=== PATIENT | male | born 1945 | race Caucasian/White ===

== ENCOUNTER 2017-01-30 09:45 | Outpatient (CLI) | payer MEDICARE, OTHER ==
[~2017-01-30] VITALS: Ht 157.5 cm; Wt 74.1 kg
[~2017-01-30 09:45] MED LIST: LISI20TA11 PO
[2017-01-30] MEDS ORDERED: CAPE500T11 PO (10:02)
[2017-01-30 10:03] VITALS: BP 162/75; PULSE 70; RESP 16; Ht 157.5 cm; Wt 74.1 kg
--- NOTE | 2017-01-30 12:16 | CONS ---
[facility] INITIAL OUTPATIENT CONSULTATION NOTE DATE OF CONSULTATION: 01/30/2017 PLACE OF SERVICE: [facility] ASSESSMENT AND PLAN: A very pleasant 71-year-old gentleman with above- mentioned comorbidities, presenting with evidence for stage IV colon cancer. He is status post laparoscopic hand-assisted sigmoid colectomy with primary anastomosis and seems to be doing well from a cancer standpoint, status post adjuvant treatment with modified FOLFOX and currently on Xeloda. His tumor seems to have remained stable within his liver and we do not have any evidence of obvious other disease present according to the PET CT. If his colonoscopy and liver dedicated CT scan show these 2 areas of involvement in segment 4A and segment 8 of the liver to be the only areas of involvement then I would strongly recommend scheduling the patient for a partial hepatectomy of these 2 lesions. The rest of his liver should be adequate enough to allow him to survive with reasonable small chance of complications such as liver dysfunction or other major problems. This is obviously a complicated picture and I strongly recommended that the patient involve his family members with the decision making and to bring them to our next office visit after above studies have been completed. I also obtained the patient's permission to present his case in a multidisciplinary fashion as well. I answered all the patient's questions to the best of my ability and I believe that he understood and agreed with the plans. With above assessment I have recommended the followin. Colonoscopy. 2. Liver dedicated CT scan of abdomen and pelvis with and without IV contrast ( triple phase). 3. Multidisciplinary Tumor Board presentation. 4. Tentatively schedule the patient for a laparoscopic, possible open partial hepatectomy with intraoperative ultrasound. 5. Repeat visit with us in 2 to 3 weeks after above studies have been completed as the last preoperative consultation. Thank you again for allowing us to participate in the care of this very pleasant gentleman and I am certain his wonderful family. If there are any questions, please feel free to contact me at [phone]. TOTAL VISIT TIME: 60 minutes of which more than half was spent in [id number] discussion with the patient as well as coordination of care between multiple physicians and providers. UPDATE CLINICAL SUMMARY: A very pleasant 71-year-old gentleman with comorbidity of hypertension and previous cholecystectomy, status post laparoscopic hand-assisted sigmoid colectomy with primary anastomosis by Dr. Nestor Kasper at [facility] September 2015 for a stage III (PT3PN1) originally thought to be M0, 1 out of 14 lymph node positive with focally suspected lymphovascular invasion and no perineural invasion and 1 tumor deposit low grade (I to II) adenocarcinoma sized at 3 x 3 cm without any evidence of perforation and with negative margins. Patient then received modified FOLFOX 6 consisting of 5-FU, leucovorin and oxaliplatin for 12 cycles. He was noted to have increase in CEA from 3.5 to 11.7, 12/2016. Had CT done on 01/06/2017 showed at least 2 hypermetabolic hypoattenuating hepatic metastasis newly hypermetabolic from the prior PET CT measuring 1.9 cm with SUV of 6.7 and 1 cm lesion with SUV 4.3. The 1.9 cm mass measured 0.3 cm on the prior CT 12/19/2015 and the 1 cm mass was stable in size; however, again was thought to be newly hypermetabolic. There was also decreased metabolic uptake with previously seen mildly FDG avid periportal and left pelvic lymph nodes from prior which may be reactive inflammatory versus malignant process. There was increased ileocecal metabolic uptake and intraluminal narrowing similar to prior SUV maximum level of 5.4 previous CV maximum was 5.6 and this was thought to may be physiologic, but malignancy could not be entirely ruled out. COMORBIDITIES: 1. BMI 29.9. 2. Hypertension. 3. Dermatitis. 4. History of acute cholecystitis, status post laparoscopic cholecystectomy 10/2012. 5. Mother with stomach cancer. 6. Above-mentioned stage III adenocarcinoma of the sigmoid colon which in retrospect is likely stage IV. HISTORY OF PRESENT ILLNESS: The patient is a very pleasant 71-year-old gentleman with above-mentioned comorbidities whom we were kindly asked to consult regarding management of his liver lesions thought to be metastatic colon cancer. He reports no changes in his appetite and no difficulty with eating. He does not have any abdominal pain and no nausea or vomiting. He has not had any other surgical procedures in the past and no other complaints. ALLERGIES: NO KNOWN DRUG ALLERGIES. MEDICATIONS: Xeloda. SOCIAL HISTORY: The patient lives in [place]. He is currently working. He has three sons, two of whom live outside of [place] and 1 who lives here. He does not report any smoking, drinking, or intravenous drug use. FAMILY HISTORY: Mother with stomach cancer, otherwise, no other major medical, surgical or oncologic problems reported in the family. REVIEW OF SYSTEMS: Other than the above-mentioned, there are no other pertinent positives or pertinent negatives in a complete 14-point review of systems. PHYSICAL EXAMINATION: GENERAL: The patient appears to be a very pleasant gentleman of descent, appearing stated age, sitting in a chair comfortably and in no acute distress. BMI 29.9. VITAL SIGNS: Temperature 98.3. Blood pressure 162/75. Pulse 70. Respiratory rate 16. Pulse oximetry 95% on room air. HEENT: Normocephalic and atraumatic. Extraocular muscles and hearing are grossly intact bilaterally and symmetrically. Sclerae are nonicteric. Oral cavity is clear; oral mucosa appeared to be pink and moist. Dentition: fair. NECK: Supple. There is no lymphadenopathy or JVD. There is no submental, submandibular or supraclavicular lymphadenopathy. CHEST: Rises symmetrically with each breath; patient is breathing comfortably. There are no audible wheezes, rales or rhonchi on the gross exam. HEART: Pulse is regular and palpable on the right wrist. Capillary refill was normal. Carotid pulses are palpable bilaterally and symmetrically in the neck. EXTREMITIES: Lower extremities contain no pitting edema around the ankles bilaterally and symmetrically. ABDOMEN: Abdomen is soft, nontender and nondistended. There are no peritoneal signs or guarding. No evidence of ascites, organomegaly, caput medusae, engorged subcutaneous veins, or other abnormalities. SKIN: Appears to be pink and feels warm to touch. NEUROLOGIC: Awake, alert, and follows commands appropriately. LABORATORY: Laboratory values dated 12/2016 white blood cell count 7.1, platelets 156, creatinine 0.7, total bilirubin 1.0. Alkaline phosphatase 112, AST 40, ALT 28, albumin 3.8, CO2 of 25, CEA 11.7, up from 3.5 from 09/2016. IMAGING: Reviewed above. Note that I personally reviewed all the available and pertinent images and I agree in general with their overall reported findings. Note that review of CT scan of chest, abdomen and pelvis with and without contrast 12/19/2015 shows evidence for likely metastatic disease in the same location as seen on the PET CT images. These appear to be in segment 4A as well as segment 6 of the liver. Dictated By: SARITA MONTIEL/NTS Conf#: [id number] DID#: [id number] CC: GILBERTO FISHMAN MD; HECTOR CASSIDY MD;*EndCC* MTDD
== END 2017-01-30 17:08 | disposition home or self-care (01) ==
LOC: HPC 09:45
PROVIDERS: ATTEND Transplant Surgery
DX: C18.7 Malignant neoplasm of sigmoid colon (principal); I10 Essential (primary) hypertension
CPT/HCPCS: G0463

== ENCOUNTER 2017-03-15 13:15 | Outpatient (CLI) | payer OTHER ==
[~2017-03-15] VITALS: Ht 157.5 cm; Wt 72.3 kg
[2017-03-15 13:00] VITALS: BP 159/74; PULSE 79; RESP 18; Ht 157.5 cm; Wt 72.3 kg
[~2017-03-15 13:15] MED LIST changes: +CAPE500T11 PO; -LISI20TA11 PO
--- NOTE | 2017-03-15 13:35 | PN ---
Date/Time of Note Date/Time of Note DATE: 03/15/17 TIME: 13:30 Assessment/Plan Assessment/Plan Assessment/Plan [facility] Progress Note Date of Service: 03/15/17 Today's Impression & Plan: Overall stable with stage IV colon cancer with metastasis to liver (seg 4a/2 and segment 7). Colonoscopy 03/10/17 acceptable without concern for malignancy. Recommended and obtained patient's and [id number]'s consent for partial hepatectomy. With above assessment, I've recommended the following for today: 1. Pre-op H&P 2. Schedule for laparoscopic, possible open, partial hepatectomy (at least two areas) with intraoperative ultrasound, possible biopsy Thank you again for your great care of this very pleasant patient and wonderful family. If there are any questions, please feel free to call me at [phone]. TOTAL VISIT TIME: 20 minutes of which more than half was spent in [id number] discussion with the patient, possibly including family, as well as coordination of care between multiple physicians and providers. Disclaimer: Inadvertent spelling or grammatical errors are likely due to EHR/ dictation software use and do not reflect on the overall quality of patient care. Updated Clinical Summary: A very pleasant 71-year-old gentleman with comorbidity of hypertension and previous cholecystectomy, status post laparoscopic hand-assisted sigmoid colectomy with primary anastomosis by Dr. Nestor Kasper at [facility] September 2015 for a stage III (PT3PN1) originally thought to be M0, 1 out of 14 lymph node positive with focally suspected lymphovascular invasion and no perineural invasion and 1 tumor deposit low grade (I to II) adenocarcinoma sized at 3 x 3 cm without any evidence of perforation and with negative margins. Patient then received modified FOLFOX 6 consisting of 5-FU, leucovorin and oxaliplatin for 12 cycles. He was noted to have increase in CEA from 3.5 to 11.7, 12/2016. Had CT done on 01/06/2017 showed at least 2 hypermetabolic hypoattenuating hepatic metastasis newly hypermetabolic from the prior PET CT measuring 1.9 cm with SUV of 6.7 and 1 cm lesion with SUV 4.3. The 1.9 cm mass measured 0.3 cm on the prior CT 12/19/2015 and the 1 cm mass was stable in size; however, again was thought to be newly hypermetabolic. There was also decreased metabolic uptake with previously seen mildly FDG avid periportal and left pelvic lymph nodes from prior which may be reactive inflammatory versus malignant process. There was increased ileocecal metabolic uptake and intraluminal narrowing similar to prior SUV maximum level of 5.4 previous CV maximum was 5.6 and this was thought to may be physiologic, but malignancy could not be entirely ruled out. Colonoscopy 03/10/17 with removal of 7 small polyps and no evidence of malignancy done at [facility]. COMORBIDITIES: 1. BMI 29.9. 2. Hypertension. 3. Dermatitis. 4. History of acute cholecystitis, status post laparoscopic cholecystectomy 10/2012. 5. Mother with stomach cancer. 6. Above-mentioned stage III adenocarcinoma of the sigmoid colon which in retrospect is likely stage IV. 7. Colonoscopy 03/10/17 with removal of 7 small polyps and no evidence of malignancy done at [facility]. Subjective: No major events or complaints; no abd pain; no n/v/d; no sob or cp; + flatus; + BM and normal; + activity Objective: Vitals: See below Exam: GENERAL: On exam, the patient was sitting in a chair and appeared to be comfortable and in no acute distress. ABDOMEN: Soft, nontender and nondistended. There are no peritoneal signs or guarding. SKIN: Skin appears to be pink and feels warm to touch. NEUROLOGIC: Patient is awake, alert, and follows commands appropriately. Exam/Review of Systems Vital Signs Vitals Vital Signs Date Time Temp Pulse Resp B/P Pulse Ox O2 Delivery O2 Flow Rate FiO2 03/15/17 13:00 98.7 79 18 159/74 94 Room Air SARITA WHITAKER M.D. March 15, 2017 13:35
== END 2017-03-15 15:16 | disposition home or self-care (01) ==
LOC: HPC 13:15
PROVIDERS: ATTEND Transplant Surgery
DX: Z01.818 Encounter for other preprocedural examination (principal); C18.9 Malignant neoplasm of colon, unspecified; C78.7 Secondary malignant neoplasm of liver and intrahepatic bile duct
CPT/HCPCS: G0463

== ENCOUNTER 2017-03-28 05:21 | Inpatient (IN) | payer OTHER ==
[~2017-03-28] VITALS: Ht 157.5 cm; Wt 70.6 kg
[2017-03-28] VITALS (36 sets, daily range): BP systolic 72–150; BP diastolic 20–71; PULSE 77–92; RESP 10–21; Ht 157.5 cm; Wt 70.6 kg
[2017-03-28] MEDS ORDERED: PIPER-TAZO 3.375 GM IV (PMX) 100 ML IVPB SCH (06:00)
[2017-03-28] MEDS ORDERED: BUPIVACAINE 0.25%/EPI (SDV) 30 ML INJ ONE (06:46)
[2017-03-28] MEDS ORDERED: ACETAMINOPHEN 1000 MG/100 ML IVPB ONE (07:00)
[2017-03-28] MEDS ORDERED: LISI40TA9 PO (07:13)
[2017-03-28] MEDS ORDERED: THROMBIN 5000 UNIT VIAL ONE (07:21)
[2017-03-28] MEDS ORDERED: ROCURONIUM 50 MG INJ ONE ×3 (07:26→14:23)
[2017-03-28] MEDS ORDERED: PROPOFOL 20 ML ONE (07:26)
[2017-03-28] MEDS ORDERED: FENTAnyl 50 MCG/ML VIAL ONE (07:27)
[2017-03-28] MEDS ORDERED: MIDAZOLAM 1 MG/ML 2 ML INJ ONE (07:27)
[2017-03-28] MEDS ORDERED: ROPIVACAINE 0.5 % 30 ML VIAL ONE ×2 (07:28→08:07)
--- NOTE | 2017-03-28 07:34 | HPN ---
Date/Time of Note Date/Time of Note DATE: 03/28/17 TIME: 07:30 Interval H&P Admission Note Pt. seen H&P reviewed: No system changes Pt. seen H&P reviewed. No system changes (I attest that I have seen and examined the patient and reviewed the operation in detail, as well as its risks , benefits and alternatives of the operation). I attest that I have seen and examined the patient and reviewed in detail the operation, and its associated risks, benefits and alternative. I have answered all the patient's questions to the best of my ability and the patient wishes to proceed. Please refer to rest of electronic medical record for additional updates. SARITA WHITAKER M.D. Mar 28, 2017 07:34
[2017-03-28] MEDS ORDERED: morphine SULFATE/PF (10 MG/10 ML) INJ ONE (08:17)
[2017-03-28] MEDS ORDERED: PHENYLephrine (100 MCG/ML) 5ML SYG ONE ×5 (08:41→14:32)
[2017-03-28] MEDS ORDERED: hydrALAzine 20 MG INJ IV PRN (10:00)
[2017-03-28] MEDS ORDERED: morphine 4 MG/ML VIAL IV PRN (10:00)
[2017-03-28] MEDS ORDERED: EPHEDrine SULFATE 50 MG/5 ML SYG IV PRN (10:00)
[2017-03-28] MEDS ORDERED: KETOROLAC 30 MG INJ IV PRN (10:00)
[2017-03-28] MEDS ORDERED: LABETALOL HCL 20MG INJ IV PRN (10:00)
[2017-03-28] MEDS ORDERED: HYDROmorphONE 1 MG/ML SYG IV PRN ×4 (10:00→17:00)
[2017-03-28] MEDS ORDERED: ONDANSETRON 4 MG INJ IV PRN (10:00)
[2017-03-28] MEDS ORDERED: NALBUPHINE HCL (10 MG/1 ML) INJ IV PRN (10:00)
[2017-03-28] MEDS ORDERED: METOCLOPRAMIDE 10 MG INJ IV PRN (10:00)
[2017-03-28] MEDS ORDERED: MEPERIDINE 25 MG INJ IV PRN (10:00)
[2017-03-28] MEDS ORDERED: DIPHENHYDRAMINE 50 MG INJ IV PRN (10:00)
[2017-03-28] MEDS ORDERED: NALOXONE (0.4 MG/ML) INJ IV PRN ×2 (10:00→17:00)
[2017-03-28] MEDS ORDERED: PHENYLephrine 10 MG INJ ONE ×2 (10:24→15:33)
[2017-03-28] MEDS ORDERED: ALBUMIN HUMAN 5% 250 ML ONE ×3 (13:07→16:39)
[2017-03-28] MEDS ORDERED: HETASTARCH 6% NACL 500 ML ONE (13:08)
[2017-03-28] MEDS ORDERED: FUROSEMIDE 20 MG INJ ONE (13:21)
[2017-03-28 14:49] LABS: ADD SCAN DIFF NO
[2017-03-28 14:51] LABS: BASOPHILS % 0.2 % (0.0-2.0); EOSINOPHILS % 0.3 % (0.0-7.0); HEMATOCRIT 21.7 % (42.0-52.0); HEMOGLOBIN 7.2 g/dl (14.0-18.0); LYMPHOCYTES # 1.9 10^3/ul (0.8-2.9); LYMPHOCYTES % 19.6 % (15.0-51.0); MEAN CORPUSCULAR HEMOGLOBIN 32.3 pg (29.0-33.0); MEAN CORPUSCULAR HGB CONC 33.2 g/dl (32.0-37.0); MEAN CORPUSCULAR VOLUME 97.3 fl (82.0-101.0); MEAN PLATELET VOLUME 10.3 fl (7.4-10.4); MONOCYTE # 0.5 10^3/ul (0.3-0.9); MONOCYTES % 4.7 % (0.0-11.0); NEUTROPHIL # 7.2 10^3/ul (1.6-7.5); PLATELET COUNT 120 10^3/UL (140-415); RED BLOOD COUNT 2.23 10^6/ul (4.70-6.10); RED CELL DISTRIBUTION WIDTH 15.9 % (11.5-14.5); WHITE BLOOD COUNT 9.6 10^3/ul (4.8-10.8)
[2017-03-28] MEDS ORDERED: SOD CHLORIDE 0.9% 250 ML IV* ONE (15:21)
[2017-03-28] MEDS ORDERED: NEOSTIGMINE 3 MG/3 ML SYRINGE ONE (16:20)
[2017-03-28] MEDS ORDERED: GLYCOPYRROLATE 0.4 MG INJ ONE (16:20)
[2017-03-28] MEDS ORDERED: FAMOTIDINE 20 MG INJ ONE (16:21)
[2017-03-28] MEDS ORDERED: ONDANSETRON 4 MG INJ ONE (16:21)
[2017-03-28] MEDS ORDERED: METOCLOPRAMIDE 10 MG INJ ONE (16:21)
[2017-03-28] MEDS ORDERED: DEXAMETHASONE 4 MG/ML 1 ML INJ ONE (16:21)
[2017-03-28 16:58] LABS: ADD SCAN DIFF NO
[2017-03-28 16:59] LABS: HEMATOCRIT 27.2 % (42.0-52.0); HEMOGLOBIN 8.6 g/dl (14.0-18.0); MEAN CORPUSCULAR HEMOGLOBIN 30.5 pg (29.0-33.0); MEAN CORPUSCULAR HGB CONC 31.6 g/dl (32.0-37.0); MEAN CORPUSCULAR VOLUME 96.5 fl (82.0-101.0); MEAN PLATELET VOLUME 9.9 fl (7.4-10.4); PLATELET COUNT 120 10^3/UL (140-415); RED BLOOD COUNT 2.82 10^6/ul (4.70-6.10); RED CELL DISTRIBUTION WIDTH 16.7 % (11.5-14.5); WHITE BLOOD COUNT 10.9 10^3/ul (4.8-10.8)
[2017-03-28] MEDS ORDERED: HYDROCODONE/APAP (5/325) TAB PO PRN ×2 (17:00)
[2017-03-28] MEDS ORDERED: ALBUMIN HUMAN 5% 250 ML IV ONE (17:00)
[2017-03-28] MEDS ORDERED: DOCUSATE SODIUM 100 MG CAP PO PRN (17:00)
[2017-03-28] MEDS ORDERED: BISACODYL 10 MG SUPP PR PRN (17:00)
[2017-03-28] MEDS ORDERED: HYDROmorphONE 0.2 MG/ML PCA IV SCH (17:00)
[2017-03-28] MEDS ORDERED: NA PHOSPHATE/BIPHOS 133 ML ENEMA PR PRN (17:00)
[2017-03-28] MEDS ORDERED: PHENYLephrine 40 MG in DEXTROSE 5% 496 ML IV SCH (17:00)
[2017-03-28 17:15] LABS: INR 1.77; PROTIME 20.8 Sec (12.2-14.2); PT RATIO 1.6
[2017-03-28 17:17] LABS: ALBUMIN 2.2 g/dl (3.3-4.9); ALBUMIN/GLOBULIN RATIO 1.15; BILIRUBIN,INDIRECT 2.1 mg/dl (0-1.1); BILIRUBIN,TOTAL 2.1 mg/dl (0.2-1.3); TOTAL PROTEIN 4.1 g/dl (6.1-8.1)
[2017-03-28 17:19] LABS: CREATININE 0.56 mg/dl (0.61-1.24); POTASSIUM 4.5 mmol/L (3.5-5.1)
[2017-03-28 17:22] LABS: CALCIUM 6.3 mg/dl (8.4-10.2)
[2017-03-28 17:30] LABS: MAGNESIUM 1.1 mg/dl (1.7-2.5); PHOSPHORUS 5.5 mg/dl (2.5-4.9)
[2017-03-28] MEDS ORDERED: PHENYLephrine 20MG IN 250 ML 250 ML IV SCH (17:30)
[2017-03-28] MEDS ORDERED: CA CHLORIDE 10% 10 ML SYRINGE IV ONE (17:30)
--- NOTE | 2017-03-28 17:32 | OPR ---
Date/Time of Note Date/Time of Note DATE: 03/28/17 TIME: 17:30 Operative Report Operative\Procedure Findings [facility] INPATIENT OPERATIVE NOTE PLACE OF SERVICE: [facility] DATE OF SURGERY: 03/28/2017 PREOPERATIVE DIAGNOSIS: 1. 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 2. BMI 29.9. 3. Hypertension. 4. Dermatitis. 5. History of acute cholecystitis, status post laparoscopic cholecystectomy 10/2012. 6. Mother with stomach cancer. 7. Colonoscopy 03/10/17 with removal of 7 small polyps and no evidence of malignancy done at [facility] [place]. POSTOPERATIVE DIAGNOSIS: 1. 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 2. BMI 29.9. 3. Hypertension. 4. Dermatitis. 5. History of acute cholecystitis, status post laparoscopic cholecystectomy 10/2012. 6. Mother with stomach cancer. 7. Colonoscopy 03/10/17 with removal of 7 small polyps and no evidence of malignancy done at [facility] [place]. OPERATION: 1. Laparoscopic, converted to open exploration of abdominal cavity with lysis of adhesions 2. Partial hepatectomy in the form of central hepatectomy with removal of segment 4B 3. Partial hepatectomy, removal of segment 6 and 7 4. Core needle liver biopsy segment 5 (6 cores) with both frozen sections intraoperatively as well as for permanent sections SURGEON: Sarita Whitaker M.D. GOAT DRIVER: DAVEY Salazar Please note that Ms. Leach was present for the entire duration of the operation and was instrumental in assisting with the most critical portions of the operation. ANESTHESIA: General endotracheal tube anesthesia ANESTHESIOLOGIST: Karo Levy M.D. BRIEF SUMMARY: An otherwise uncomplicated but rather difficult partial hepatectomy of 2 separate areas of the liver was performed with findings of pre- cirrhotic liver with 2 areas of involvement of the liver with likely metastatic colon cancer. Updated Clinical Summary: A very pleasant 71-year-old gentleman with comorbidity of hypertension and previous cholecystectomy, status post laparoscopic hand-assisted sigmoid colectomy with primary anastomosis by Dr. Nestor Kasper at [facility] September 2015 for a stage III (PT3PN1) originally thought to be M0, 1 out of 14 lymph node positive with focally suspected lymphovascular invasion and no perineural invasion and 1 tumor deposit low grade (I to II) adenocarcinoma sized at 3 x 3 cm without any evidence of perforation and with negative margins. Patient then received modified FOLFOX 6 consisting of 5-FU, leucovorin and oxaliplatin for 12 cycles. He was noted to have increase in CEA from 3.5 to 11.7, 12/2016. Had CT done on 01/06/2017 showed at least 2 hypermetabolic hypoattenuating hepatic metastasis newly hypermetabolic from the prior PET CT measuring 1.9 cm with SUV of 6.7 and 1 cm lesion with SUV 4.3. The 1.9 cm mass measured 0.3 cm on the prior CT 12/19/2015 and the 1 cm mass was stable in size; however, again was thought to be newly hypermetabolic. There was also decreased metabolic uptake with previously seen mildly FDG avid periportal and left pelvic lymph nodes from prior which may be reactive inflammatory versus malignant process. There was increased ileocecal metabolic uptake and intraluminal narrowing similar to prior SUV maximum level of 5.4 previous CV maximum was 5.6 and this was thought to may be physiologic, but malignancy could not be entirely ruled out. Colonoscopy 03/10/17 with removal of 7 small polyps and no evidence of malignancy done at [facility] [place]. COMORBIDITIES: 1. BMI 29.9. 2. Hypertension. 3. Dermatitis. 4. History of acute cholecystitis, status post laparoscopic cholecystectomy 10/2012. 5. Mother with stomach cancer. 6. Above-mentioned stage III adenocarcinoma of the sigmoid colon which in retrospect is likely stage IV. 7. Colonoscopy 03/10/17 with removal of 7 small polyps and no evidence of malignancy done at [facility] [place]. BRIEF HISTORY: The patient is a very pleasant 71-year-old gentleman with above- mentioned history who presented with evidence for stage IV colon cancer. He is status post laparoscopic hand-assisted sigmoid colectomy with primary anastomosis and seems to be doing well from a cancer standpoint, status post adjuvant treatment with modified FOLFOX and currently on Xeloda. His tumor seems to have remained stable within his liver and we do not have any evidence of obvious other disease present according to the PET CT. His clonoscopy and liver dedicated CT scan showed these 2 areas of involvement in segment 4A and segment 8 of the liver to be the only areas of involvement. I therefore strongly recommended scheduling the patient for a partial hepatectomy of these 2 lesions. The rest of his liver should be adequate enough to allow him to survive with reasonable small chance of complications such as liver dysfunction or other major problems. This is obviously a complicated picture and I strongly recommended that the patient involve his family members with the decision making and to bring them to our next office visit after above studies have been completed, which he did. I also obtained the patient's permission to present his case in a multidisciplinary fashion as well. The tumor board also agreed with this plan. I again met with the patient and family and counseled them regarding the possible options of treatment, and I strongly suggested an attempt at resection of these 2 lesions. We reviewed the operation in detail as well as the risks, benefits, alternatives, and expected outcomes of this operation. After careful consideration of all the risks, benefits, and alternatives, the patient and family appeared to understand those risks and wished to proceed with surgery. For a detailed report of my consultation with patient and family, please refer to my separate consultation note. STATEMENT OF THE INFORMED CONSENT: The patient and family appeared to understand the risks of the operation to include, but not be limited to risk of postoperative pain and scar tissue, possible infection or bleeding requiring other interventions such as opening the wound, placement of drainage catheters, or other operative interventions; possible injury to surrounding to structures including bowel, bladder, bile duct, or blood vessels, or solid organs such as liver, kidney, or pancreas requiring other interventions or procedures; possible leakage of bowel from anastomotic sites or suture lines causing significant increase in morbidity and mortality and requiring multiple interventions including but not limited to, placement of drainage catheters, imaging studies, as well as operative interventions; possible other source of sepsis such as urinary tract infections or pneumonias, or other sources of potentially life threatening problems such as deep venous thrombus formation causing pulmonary embolism, myocardial arrhythmias and infarctions, and even . We also briefly discussed the potential need to receive blood products and their potential complications of blood transfusion reactions, transmission of infections, or other complications. After careful consideration of all their options, the patient and family appeared to understand and wished to proceed with surgery. DESCRIPTION OF PROCEDURE: After obtaining informed consent, the patient was brought into the operating room and was placed in a normal supine position, where successful general endotracheal tube anesthesia was performed. Intravenous access was already in place and intravenous antimicrobials had been appropriately chosen and dosed prior to the operation. Epidural catheter was placed and an A line was also obtained by anesthesia. The patient's abdominal skin was prepped and draped from the nipple line down to the level of the groins in the usual sterile fashion. We then called a surgical time-out where the patient's identification, date of , nature of the operation, allergies , presence of intravenous antimicrobials, presence of needed equipment, and any other concerns were reviewed and agreed upon by all members of the operating room team. We then started the operation by placing a 5 mm skin incision in the right upper quadrant using scalpel and then placing a 5 mm [employer] trocar into the peritoneal space visualizing all the layers of the abdominal wall as we entered using direct entry technique. Note that there was no indication of any injury to underlying structures. We insufflated the abdominal cavity to a maximum pressure of 15 mmHg and I was able to inspect the abdominal cavity in a limited fashion, but confirmed that there was no evidence of any obvious metastatic disease present. The liver also appeared to be slightly nodular on the surface but did not have the appearance of macronodular cirrhosis and for this reason we decided to convert the operation to open. We therefore placed our usual right subcostal incision with an extension of the midline up to the xiphoid process using scalpel and then using cautery to go through the subcutaneous fat and entering fascia under direct visualization. We placed our Stuherland retractor and got excellent exposure to the abdominal cavity. There was slight amount of omental adhesions onto the area of the umbilical hernia repair which was done with mesh but no significant other involvement of adhesions in the lower abdomen and no obvious bowel issues that we could see. The liver appeared to have slight amount of nodular surface but there was no evidence of obvious cirrhosis and no major evidence of portal hypertension. We could not feel or see any lesions on the surface of the liver. We therefore performed an intraoperative ultrasound as follows. Intraoperative ultrasound of the liver: The following segments were visualized, and there were no lesions that were concerning for malignant disease in any of them unless mentioned: Caudate lobe: No lesion. Segment 2: No lesion. Segment 3: No lesion. Segment 4: No lesion in segment 4A; 2-1/2 cm lesion was seen in segment 4B, directly above and involving the portal pedicle branches that where going to segment 4B. This was consistent with the preoperative images. Segment 5: No lesion. Segment 6: No lesion. Segment 7: At least 1 and perhaps 2 or 3 satellite lesions in segment 7 approximately 4 cm in greatest dimension were seen. Segment 8: No lesion. We also noted antegrade flow through the portal vein on the left and right as well as the hepatic artery on the left and right and also antegrade flow through the middle right and left hepatic veins. Biliary system was not dilated. Above findings were consistent with our preoperative images and plans. We performed core needle liver biopsy of segment 5 using a BARD liver biopsy needle and send 6 cores to pathology, 3 of which were used for frozen sections that showed early cirrhosis but no severe fibrosis. I then started the operation by taking down the adhesions of the omentum that were onto the gallbladder fossa from the patient's prior cholecystectomy. This took approximately an extra 20 minutes of dissection. We then started very meticulous dissection of the segment 4B lesion after marking the borders of the lesion using intraoperative guidance and then choosing a border of approximately 2 cm diameter in order to achieve adequate margins. We performed very meticulous dissection using the Erbe jet device to go through the parenchyma of the liver and then controlled the bleeding and the bile ductules using a combination of cautery, surgical clips, sutures, and 5-0 Prolene suture ligatures as needed. We descended on a circumferential approach down onto the portal pedicles that were going into segment 4B. We identified the individual elements of vessels and bile ducts ever going into the segment and we controlled them using combination of suture ligature and surgical clips with circumferential control around the structures as much as possible. No stapling device was used during this part of the procedure and this part of the procedure certainly added to the complexity of the operation and made it more difficult to perform especially since we had to preserve the blood flow to segment 2 and 3. Throughout this process, I checked the blood flow to segment 2 and 3 of the liver using ultrasound and this portion of liver remained viable throughout the case. After achieving adequate hemostasis we marked the specimen in our usual standard fashion with the short suture marking the superior edge and the long suture marking the right lateral margin. The deep margin was marked by a long Prolene suture. This was sent to pathology for permanent sections. Note that I performed ultrasound evaluation of the margins and could see that the deep margin was close or perhaps even involved although clinically the mass was completely out and there was no infiltration of the underlying structures. We did not do a frozen section analysis of this area since it would not change the operative management. I did not want to remove any further liver and risk the chance of converting the operation to a formal left lobectomy and therefore not being able to remove the right liver lesion. We then repeated our ultrasound on the right and marked the borders of the area of interest in segment 7 using cautery and then chose a suitable line to include segment 6 and 7 of the liver in order to be able to remove the sector with the lesions inside. Because the patient had been under anesthesia for approximately 4-5 hours at this point and because I did not believe that the patient could handle longer operative times using meticulous dissection with the water jet, I chose to remove this part of the liver using Endo SWATI stapling technique with the 16 mm Bronaugh flex stapler with vascular (white) loads. Approximately 9 loads were used to remove segment 6 and 7 of the liver. This specimen was also marked in the usual fashion with the short suture marking the superior margin, long suture marking the right lateral margin, and double sutures marking the posterior surface of the liver and sent to pathology for permanent sections. I again checked the margins using ultrasound guidance and the lesions appear to have good distance away from all margins involved. We then spent quite a bit of time in the operating room (approximately 60 minutes) to ensure adequate hemostasis and bile stasis. Slight areas of bleeding and bile leakage were controlled using very meticulously placed 5-0 Prolene suture on RB1 needles. After ensuring adequate hemostasis and bile stasis, we removed all her equipment from the abdominal cavity, placed a 19 Japanese Herbert drain through a separate skin incision laying the drain in the right upper quadrant along the area of resection of segment 6 and 7 and secured the drain to skin using 2-0 nylon suture. We then closed the fascia using #1 PDS suture in a running fashion, washed the wounds with copious amounts of normal saline, and then reapproximated the skin using stainless mia. Light dressing was then applied. At the end of the operation, both the sponge count and needle count were reportedly correct x2. The patient tolerated the procedure without any reported complications. ESTIMATED BLOOD LOSS: 800 cc BLOOD OR BLOOD PRODUCT TRANSFUSIONS: One unit packed red blood cells SPECIMENS: 1. Core needle liver biopsy, segment 5 2. Segment 4B 3. Segment 6 and 7 COMPLICATIONS: None. DISPOSITION: Recovery area. Disclaimer: Inadvertent spelling and grammatical errors are likely due to EHR/ dictation software use and do not reflect on the quality of delivered patient care. Also, please note that the electronic time recorded on this node does not necessarily reflect the actual time of the visit. SARITA WHITAKER M.D. Mar 28, 2017 17:32
[2017-03-28 17:34] LABS: ADD UMIC YES; URINE BILIRUBIN (Dip) NEGATIVE (NEGATIVE); URINE BLOOD (Dip) TRACE (NEGATIVE); URINE COLOR LT. YELLOW (YELLOW); URINE GLUCOSE (Dip) NEGATIVE (NEGATIVE); URINE KETONES (Dip) NEGATIVE (NEGATIVE); URINE LEUKOCYTE ESTERASE (Dip) NEGATIVE (NEGATIVE); URINE NITRITE (Dip) NEGATIVE (NEGATIVE); URINE TOTAL PROTEIN (Dip) NEGATIVE (NEGATIVE); URINE UROBILINOGEN (Dip) 0.2 E.U./dL (0.1-1.0)
[2017-03-28 17:49] LABS: URINE RBCS 0-2 /HPF (0)
[2017-03-28 17:50] LABS: SQUAMOUS EPITHELIAL CELL,UR RARE
[2017-03-28 17:54] LABS: PARTIAL THROMBOPLASTIN TIME 45.6 Sec (25.0-35.0)
[2017-03-28] MEDS ORDERED: MAGNESIUM SULFATE 2 GM/50 ML 50 ML IVPB ONE (18:30)
[2017-03-28] MEDS ORDERED: PHYTONADIONE 2 MG in DEXTROSE 5% 50 ML IVPB ONE (19:00)
[2017-03-28] MEDS: D5W-0.45 NACL + KCL 20 MEQ 1,000 ML IV SCH (19:01)
[2017-03-28 19:13] LABS: BASOPHIL # 0.1 10^3/ul (0.0-0.1); LYMPHOCYTES # 3.5 10^3/ul (0.8-2.9); MONOCYTE # 0.1 10^3/ul (0.3-0.9); NEUTROPHIL # 5.7 10^3/ul (1.6-7.5)
--- NOTE | 2017-03-28 20:21 | CONS ---
DATE OF ADMISSION: 03/28/2017 DATE OF CONSULTATION: 03/28/2017 This is a 71-year-old male, history of colon cancer with metastasis to the liver , status post open liver resection earlier today. HISTORY OF PRESENT ILLNESS: A 71-year-old male with past medical history of dermatitis, essential hypertension, gallbladder removal secondary to empyema, colon cancer with metastasis to the liver, BMI of 30 who underwent open liver resection earlier today by a hepatobiliary surgeon. The liver lesions likely to be colorectal metastasis as the patient has history of stage III adenocarcinoma of the sigmoid colon. The patient is presently in the surgical recovery unit going to the ICU. Most of the information obtained from the chart documentation as the patient is unable to provide a full HPI at this time. So, full review systems could not be obtained, presently is getting pain medications as well, and recovering from anesthesia. PAST MEDICAL HISTORY: As stated above. ALLERGIES: NO KNOWN DRUG ALLERGIES. HOME MEDICINES: 1. Xeloda 500 mg b.i.d. 2. Lisinopril 40 mg daily. PAST SURGICAL HISTORY: In addition to today's surgery, see above. He has had a lap britney in the past and partial colectomy in the past. SOCIAL HISTORY: Former smoker. FAMILY HISTORY: Positive for stomach cancer in mother and positive for MN in father. PHYSICAL EXAMINATION: VITAL SIGNS: Today: T-max 98.9, pulse of 84 to 92, respirations 11 to 21, blood pressure is 122 to 146 systolic over 46 to 50 diastolic, satting at 100% 2 liters nasal cannula. GENERAL: Shows the patient is lying in bed, lethargic, but no acute distress. HEENT: Pupils equal, round, react to light. Extraocular muscles intact. NECK: Supple, no thyromegaly. LUNGS: Clear to auscultation bilaterally. CARDIOVASCULAR: S1, S2 heard. No rubs or gallops. ABDOMEN: No rebound or guarding. Bandage is covering surgical incisions. MUSCULOSKELETAL: No lower extremity edema bilaterally. NEUROLOGIC: No focal deficits. LABORATORIES: WBC 10.8, hemoglobin 8.6, hematocrit 27.2, platelets of 120. Sodium 141, potassium 4.5, chloride 111, CO2 24, BUN of 9, creatinine 0.56, glucose 116. Lactic acid 4.3, phosphorus is 5.5, mag is 1.1, total bilirubin 2.1, direct bilirubin 0.0, indirect 2.1, AST of 382, ALT of 178, alk phos of 57. Coags show an INR of 1.77, PT of 20.8, PTT of 45.6. UA shows negative nitrite, negative leukocyte esterase. ASSESSMENT AND PLAN: A 71-year-old male status post open liver resection for colon cancer with metastasis to the liver, prior history of hypertension and dermatitis. 1. Status post open liver resection. Again, the patient has history of colon cancer previously stage III and previously had a colectomy and chemotherapy, but now unfortunately cancer has advanced to metastasis to the liver and again he underwent an open liver resection earlier today. Continue follow up with the postop recommendations and orders from the hepatobiliary surgery team including pain control, medications, lab orders, IV fluids. We will replete his low magnesium as well. Monitor his lactic acid. Monitor platelet levels as well as he has had some mild thrombocytopenia, but no signs of any bleeding. 2. Hypertension. Again, blood pressure stable. Continue to monitor for now. Consider Hydralazine p.r.n. 3. History of dermatitis. Continue to monitor for now. 4. Again, history of colon cancer, adenocarcinoma, with metastasis. See #1. 5. Gastrointestinal prophylaxis. Pepcid. 6. Deep venous thrombosis prophylaxis. He is on Lovenox. Dictated By: THANIA JAUREGUI/SANTOSH Conf#: [id number] DID#: [id number] CC: SARITA WHITAKER MD; THANIA GARCIA;*EndCC* MTDD
[2017-03-28] MEDS: NACL 0.9% 3 ML SYG IV SCH (21:13)
[2017-03-29] VITALS (23 sets, daily range): BP systolic 101–155; BP diastolic 26–101; PULSE 83–104; RESP 11–23
[2017-03-29] MEDS ORDERED: SOD CHLORIDE 0.9% 500 ML IV ONE (02:30)
[2017-03-29 04:42] LABS: ADD SCAN DIFF NO
[2017-03-29 04:54] LABS: MEAN CORPUSCULAR VOLUME 95.2 fl (82.0-101.0); RED CELL DISTRIBUTION WIDTH 16.9 % (11.5-14.5)
[2017-03-29 04:58] LABS: HEMATOCRIT 25.9 % (42.0-52.0); HEMOGLOBIN 8.5 g/dl (14.0-18.0); MEAN CORPUSCULAR HEMOGLOBIN 31.3 pg (29.0-33.0); MEAN CORPUSCULAR HGB CONC 32.8 g/dl (32.0-37.0); MEAN PLATELET VOLUME 10.9 fl (7.4-10.4); PLATELET COUNT 112 10^3/UL (140-415); RED BLOOD COUNT 2.72 10^6/ul (4.70-6.10); WHITE BLOOD COUNT 12.6 10^3/ul (4.8-10.8)
[2017-03-29 05:05] LABS: INR 1.69; PT RATIO 1.6
[2017-03-29 05:06] LABS: ALBUMIN 2.7 g/dl (3.3-4.9); ALBUMIN/GLOBULIN RATIO 1.35; BILIRUBIN,INDIRECT 3.2 mg/dl (0-1.1); BILIRUBIN,TOTAL 3.2 mg/dl (0.2-1.3); CREATININE 0.66 mg/dl (0.61-1.24); MAGNESIUM 1.8 mg/dl (1.7-2.5); PARTIAL THROMBOPLASTIN TIME 41.5 Sec (25.0-35.0); POTASSIUM 5.1 mmol/L (3.5-5.1); TOTAL PROTEIN 4.7 g/dl (6.1-8.1)
[2017-03-29] MEDS: D5W-0.45 NACL + KCL 20 MEQ 1,000 ML IV SCH (05:37)
[2017-03-29 08:30] LABS: LYMPHOCYTES # 0.4 10^3/ul (0.8-2.9); MONOCYTE # 0.5 10^3/ul (0.3-0.9); NEUTROPHIL # 11.1 10^3/ul (1.6-7.5); POLYCHROMASIA 1+
--- NOTE | 2017-03-29 08:44 | PN ---
Date/Time of Note Date/Time of Note DATE: 03/29/17 TIME: 08:39 Assessment/Plan Lines/Catheters IV Catheter Type (from Nrs): Peripheral IV Perdomo in Place (from Nrs): Yes Assessment/Plan Assessment/Plan [facility] Progress Note Date of Service: 03/29/17 Today's Impression & Plan: Overall doing well post op without major issues. No major wound problems. LFT's noted and indicate expected rise. INR is acceptable. Awaiting further return of bowel function. No obvious evidence of bleeding. Due to extent of surgery, will benefit from one more day of antimicrobials. Stable enough to transfer out of ICU. Very important to focus on increased activity and pulmonary toilet. With above assessment, I've recommended the following for today: 1. Transfer out of ICU 2. PT/OT 3. Increase activity 4. Increase ICS 5. Labs in am 6. Zosyn for 4 doses 7. Cont oral conversion with likely weaning off of CHE[employer] PANCAKE [employer]LL[employer] by tomorrow 8. Cont advancing diet to regular Thank you again for your great care of this very pleasant patient and wonderful family. If there are any questions, please feel free to call me at [phone]. TOTAL VISIT TIME: 20 minutes of which more than half was spent in [id number] discussion with the patient, possibly including family, as well as coordination of care between multiple physicians and providers. Disclaimer: Inadvertent spelling or grammatical errors are likely due to EHR/ dictation software use and do not reflect on the overall quality of patient care. Updated Clinical Summary: A very pleasant 71-year-old gentleman with comorbidity of hypertension and previous cholecystectomy, status post laparoscopic hand-assisted sigmoid colectomy with primary anastomosis by Dr. Nestor Kasper at [facility] September 2015 for a stage III (PT3PN1) originally thought to be M0, 1 out of 14 lymph node positive with focally suspected lymphovascular invasion and no perineural invasion and 1 tumor deposit low grade (I to II) adenocarcinoma sized at 3 x 3 cm without any evidence of perforation and with negative margins. Patient then received modified FOLFOX 6 consisting of 5-FU, leucovorin and oxaliplatin for 12 cycles. He was noted to have increase in CEA from 3.5 to 11.7, 12/2016. Had CT done on 01/06/2017 showed at least 2 hypermetabolic hypoattenuating hepatic metastasis newly hypermetabolic from the prior PET CT measuring 1.9 cm with SUV of 6.7 and 1 cm lesion with SUV 4.3. The 1.9 cm mass measured 0.3 cm on the prior CT 12/19/2015 and the 1 cm mass was stable in size; however, again was thought to be newly hypermetabolic. There was also decreased metabolic uptake with previously seen mildly FDG avid periportal and left pelvic lymph nodes from prior which may be reactive inflammatory versus malignant process. There was increased ileocecal metabolic uptake and intraluminal narrowing similar to prior SUV maximum level of 5.4 previous CV maximum was 5.6 and this was thought to may be physiologic, but malignancy could not be entirely ruled out. Colonoscopy 03/10/17 with removal of 7 small polyps and no evidence of malignancy done at [facility]. S/p laparoscopic, converted to open exploration of abdominal cavity with lysis of adhesions, partial hepatectomy in the form of central hepatectomy with removal of segment 4B, partial hepatectomy, removal of segment 6 and 7, core needle liver biopsy segment 5 (6 cores) with both frozen sections intraoperatively as well as for permanent sections at [facility] 03/28/17. COMORBIDITIES: 1. 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 2. BMI 29.9. 3. Hypertension. 4. Dermatitis. 5. History of acute cholecystitis, status post laparoscopic cholecystectomy 10/2012. 6. Mother with stomach cancer. 7. Colonoscopy 03/10/17 with removal of 7 small polyps and no evidence of malignancy done at [facility]. 8. S/p laparoscopic, converted to open exploration of abdominal cavity with lysis of adhesions, partial hepatectomy in the form of central hepatectomy with removal of segment 4B, partial hepatectomy, removal of segment 6 and 7, core needle liver biopsy segment 5 (6 cores) with both frozen sections intraoperatively as well as for permanent sections at [facility] 03/28/17. Subjective: No major events or complaints; no major abd pain and under control with medications; no n/v/d; no sob or cp; - flatus; - BM; minimal activity Objective: Vitals: See below Exam: GENERAL: On exam, the patient was sitting in a chair and appeared to be comfortable and in no acute distress. ABDOMEN: Soft, nontender and nondistended. Incision dressings are clean, dry and intact without any evidence of erythema, edema, discharge, or hernia. Surgery drain ss. There are no peritoneal signs or guarding. SKIN: Skin appears to be pink and feels warm to touch. NEUROLOGIC: Patient is awake, alert, and follows commands appropriately. Exam/Review of Systems Vital Signs Vitals Vital Signs Date Time Temp Pulse Resp B/P Pulse Ox O2 Delivery O2 Flow Rate FiO2 03/29/17 05:00 83 12 124/50 98 Nasal Cannula 2.0 03/29/17 04:00 98.5 Intake and Output 03/28/17 03/28/17 03/29/17 15:00 23:00 07:00 Intake Total 7500 ml 700 ml 1500 ml Output Total 1500 ml 180 ml 980 ml Balance 6000 ml 520 ml 520 ml Results Result Diagram: 03/29/17 0420 03/29/17 0420 SARITA WHITAKER M.D. Mar 29, 2017 08:44
[2017-03-29] MEDS: FAMOTIDINE 20 MG INJ IV SCH (09:00)
--- NOTE | 2017-03-29 09:52 | PN ---
Date/Time of Note Date/Time of Note DATE: 03/29/17 TIME: 09:47 Assessment/Plan VTE Prophylaxis VTE Prophylaxis Intervention: LMWH Lines/Catheters IV Catheter Type (from Nrs): Peripheral IV Urinary Cath still in place: Yes Reason Cath still needed: urinary retention Assessment/Plan Chief Complaint/Hosp Course ASSESSMENT AND PLAN: A 71-year-old male status post open liver resection for colon cancer with metastasis to the liver, prior history of hypertension and dermatitis. 1. Status post open liver resection - POD # 1. The patient has history of colon cancer previously stage III and previously had a colectomy and chemotherapy, but now unfortunately cancer has advanced to metastasis to the liver and again he underwent an open liver resection earlier yesterday. - Continue follow up with the postop recommendations and orders from the hepatobiliary surgery team including pain control, medications, lab orders, IV fluids. - monitor his lactic acid. - Monitor platelet levels as well as he has had some mild thrombocytopenia, but no signs of any bleeding. 2. Hypertension. Again, blood pressure stable. Continue to monitor for now. Consider Hydralazine p.r.n. 3. History of dermatitis. Continue to monitor for now. 4. Again, history of colon cancer, adenocarcinoma, with metastasis. See #1. 5. Gastrointestinal prophylaxis. Pepcid. 6. Deep venous thrombosis prophylaxis - Lovenox. Critical care time spent today = 40 min. Problems: Subjective 24 Hr Interval Summary Free Text/Dictation Pt alert, denies pain, seen by surgery team this AM. Wants to sit up. Exam/Review of Systems Vital Signs Vitals Vital Signs Date Time Temp Pulse Resp B/P Pulse Ox O2 Delivery O2 Flow Rate FiO2 03/29/17 08:00 85 03/29/17 08:00 12 103/51 95 Room Air 2.0 03/29/17 04:00 98.5 Intake and Output 03/28/17 03/28/17 03/29/17 15:00 23:00 07:00 Intake Total 7500 ml 700 ml 1500 ml Output Total 1500 ml 180 ml 980 ml Balance 6000 ml 520 ml 520 ml Exam GENERAL: patient is lying in bed, no acute distress. HEENT: Pupils equal, round, react to light. Extraocular muscles intact. NECK: Supple, no thyromegaly. LUNGS: Clear to auscultation bilaterally. CARDIOVASCULAR: S1, S2 heard. No rubs or gallops. ABDOMEN: No rebound or guarding. Bandage is covering surgical incisions. MUSCULOSKELETAL: No lower extremity edema bilaterally. NEUROLOGIC: No focal deficits. Results Result Diagram: 03/29/170 03/29/17419 Results 24 hrs Laboratory Tests Test 03/28/17 14:45 03/28/17 16:35 03/28/17 16:55 03/29/17 00:22 White Blood Count 9.6 10.9 H Red Blood Count 2.23 L 2.82 #L Hemoglobin 7.2 L 8.6 L Hematocrit 21.7 L 27.2 #L Mean Corpuscular Volume 97.3 96.5 Mean Corpuscular Hemoglobin 32.3 30.5 Mean Corpuscular Hemoglobin Concent 33.2 31.6 L Red Cell Distribution Width 15.9 H 16.7 H Platelet Count 120 L 120 L Mean Platelet Volume 10.3 9.9 Neutrophils % 75.0 52.0 Lymphocytes % 19.6 32.0 Monocytes % 4.7 1.0 Eosinophils % 0.3 Basophils % 0.2 1.0 Nucleated Red Blood Cells % 0.0 0.0 Neutrophils # 7.2 5.7 Lymphocytes # 1.9 3.5 H Monocytes # 0.5 0.1 L Eosinophils # 0.0 Basophils # 0.0 0.1 Nucleated Red Blood Cells # 0.0 Urine Color LT. YELLOW Urine Clarity CLEAR Urine pH 5.5 Urine Specific [place] 1.020 Urine Ketones NEGATIVE Urine Nitrite NEGATIVE Urine Bilirubin NEGATIVE Urine Urobilinogen 0.2 E.U./dL Urine Leukocyte Esterase NEGATIVE Urine Microscopic RBC 0-2 Urine Microscopic WBC 0-2 Urine Squamous Epithelial Cells RARE Urine Hemoglobin TRACE Urine Glucose NEGATIVE Urine Total Protein NEGATIVE Prothrombin Time 20.8 H Prothrombin Time Ratio 1.6 INR International Normalized Ratio 1.77 Activated Partial Thromboplast Time 45.6 H Sodium Level 141 Potassium Level 4.5 Chloride Level 112 H Carbon Dioxide Level 24 Anion Gap 10 Blood Urea Nitrogen 9 Creatinine 0.56 L Glucose Level 116 Lactic Acid Level 4.3 *H 6.8 *H Calcium Level 6.3 L Phosphorus Level 5.5 H Magnesium Level 1.1 L Total Bilirubin 2.1 H Direct Bilirubin 0.00 Indirect Bilirubin 2.1 H Aspartate Amino Transf (AST/SGOT) 382 H Alanine Aminotransferase (ALT/SGPT) 178 H Alkaline Phosphatase 57 Total Protein 4.1 L Albumin 2.2 L Globulin 1.90 Albumin/Globulin Ratio 1.15 Test 03/29/17 04:20 03/29/17 05:19 03/29/17 06:27 White Blood Count 12.6 H Red Blood Count 2.72 L Hemoglobin 8.5 L Hematocrit 25.9 L Mean Corpuscular Volume 95.2 Mean Corpuscular Hemoglobin 31.3 Mean Corpuscular Hemoglobin Concent 32.8 Red Cell Distribution Width 16.9 H Platelet Count 112 L Mean Platelet Volume 10.9 H Neutrophils % 88.0 H Band Neutrophils % 5.0 Lymphocytes % 3.0 L Monocytes % 4.0 Eosinophils % Neutrophils # 11.1 H Lymphocytes # 0.4 L Monocytes # 0.5 Eosinophils # Polychromasia 1+ Prothrombin Time 20.0 H Prothrombin Time Ratio 1.6 INR International Normalized Ratio 1.69 Activated Partial Thromboplast Time 41.5 H Sodium Level 136 Potassium Level 5.1 Chloride Level 108 Carbon Dioxide Level 22 Anion Gap 11 Blood Urea Nitrogen 14 Creatinine 0.66 Glucose Level 258 #H Lactic Acid Level 5.7 *H Calcium Level 7.0 L Phosphorus Level 3.0 # Magnesium Level 1.8 Total Bilirubin 3.2 H Direct Bilirubin 0.00 Indirect Bilirubin 3.2 H Aspartate Amino Transf (AST/SGOT) 447 H Alanine Aminotransferase (ALT/SGPT) 226 H Alkaline Phosphatase 51 B-Type Natriuretic Peptide 83 Total Protein 4.7 L Albumin 2.7 L Globulin 2.00 Albumin/Globulin Ratio 1.35 Lab Scanned Report BLOOD TRANSFUSION Bedside Glucose 250 H Medications Medications Current Medications Potassium Chloride/Dextrose/ Sod Cl (D5-1/2ns + KCl 20 Meq) 1,000 ml @ 100 mls/ hr Q10H IV Last administered on 03/29/17t 05:37; Admin Dose 100 MLS/HR; Start at 16:46 Acetaminophen/ Hydrocodone Bitart ([place] (5/325)) 1 tab Q4H PRN PO PAIN LEVEL 4 -7; Start 03/28/17 at 17:00 Acetaminophen/ Hydrocodone Bitart ([place] (5/325)) 2 tab Q4H PRN PO PAIN LEVEL 7 -10; Start 03/28/17 at 17:00 Hydromorphone HCl (Dilaudid) 0.5 mg Q2 PRN IV PAIN; Start 03/28/17 at 17:00 Hydromorphone HCl (Dilaudid) 1 mg Q2 PRN IV PAIN; Start 03/28/17 at 17:00 Docusate Sodium (Colace) 100 mg BID PRN PO CONSTIPATION; Start 03/28/17 at 17:00 Bisacodyl (Dulcolax Supp) 10 mg BID PRN ME CONSTIPATION; Start 03/28/17 at 17:00 Sodium Biphosphate/ Sodium Phosphate (Fleet Enema) 133 ml BID PRN ME CONSTIPATION; Start 03/28/17 at 17:00 Famotidine (Pepcid Iv) 20 mg DAILY IV ; Start 03/29/17 at 09:00 Enoxaparin Sodium (Lovenox) 40 mg DAILY SC ; Start 03/29/17 at 18:00 Naloxone HCl (Narcan) 0.2 mg Q2M PRN IV RR 8 BREATHS/MIN OR LESS; Start at 17:00 Hydromorphone HCl Q4PCA IV Last administered on 03/28/17t 19:22; Admin Dose 6 MG; Start 03/28/17 at 17:00 Piperacillin Sod/ Tazobactam Sod (Zosyn 3.375gm/ 100 ml (Pmx)) 100 ml @ 200 mls /hr Q6 IVPB ; Start 03/29/17 at 08:30; Stop 03/30/17 at 00:29 Miscellaneous Information (* Miscellaneous Pharmacy Order) HYPOGLYCEMIA PROTOCOL w... ONCE ONCE XX ; Start 03/29/17 at 10:00; Stop 03/29/17 at 10:01; Status UNV Miscellaneous Information (* Miscellaneous Pharmacy Order) Discontinue Glyburide , Glipizide,... ONCE ONCE XX ; Start 03/29/17 at 10:00; Stop 03/29/17 at 10:01; Status UNV Miscellaneous Information (* Miscellaneous Pharmacy Order) Discontinue all previ... ONCE ONCE XX ; Start 03/29/17 at 10:00; Stop 03/29/17 at 10:01; Status UNV Diagnostic Test (Pha) 1 ea 1 ea 02 XX ; Start 03/30/17 at 02:00; Status UNV Sodium Chloride (1/2 NS) 1,000 ml @ 75 mls/hr [id number] IV ; Start 03/29/17 at 10: 00; Stop 03/29/17 at 22:00; Status THANIA YEE Mar 29, 2017 09:52
[2017-03-29] MEDS ORDERED: SOD CHLORIDE 0.45% 1,000 ML IV SCH (10:00)
--- NOTE | 2017-03-29 11:01 | OPPN ---
Date/Time of Note Date/Time of Note DATE: 03/29/17 TIME: 11:01 Post-Anesthesia Notes Post-Anesthesia Note Last documented vital signs Vital Signs Date Time Temp Pulse Resp B/P Pulse Ox O2 Delivery O2 Flow Rate FiO2 03/29/17 10:09 99 21 03/29/17 10:00 100 21 132/26 Room Air 03/29/17 08:00 98.4 Activity: WNL Respiratory function: WNL Cardiovascular function: WNL Mental status: Baseline Pain reasonably controlled: Yes Hydration appropriate: Yes Nausea/Vomiting absent: Yes JAZZY DEJESUS MD Mar 29, 2017 11:01
[2017-03-29] MEDS: PIPER-TAZO 3.375 GM IV (PMX) 100 ML IVPB SCH ×3 (11:23→17:50)
[2017-03-29] MEDS: INSULIN ASPART [NOVOLOG] 3 ML PEN SC SCH ×3 (12:10→21:15)
[2017-03-29] MEDS: ENOXAPARIN 40 MG/0.4 ML SYG SC SCH (17:51)
[2017-03-30] VITALS (29 sets, daily range): BP systolic 126–151; BP diastolic 54–72; PULSE 91–105; RESP 12–27
[2017-03-30] MEDS: PIPER-TAZO 3.375 GM IV (PMX) 100 ML IVPB SCH
[2017-03-30] MEDS: ACCU-CHEK XX SCH (01:25)
[2017-03-30 06:53] LABS: ADD SCAN DIFF NO
[2017-03-30 07:00] LABS: BASOPHILS % 0.2 % (0.0-2.0); EOSINOPHILS % 0.1 % (0.0-7.0); HEMATOCRIT 23.5 % (42.0-52.0); HEMOGLOBIN 7.8 g/dl (14.0-18.0); LYMPHOCYTES # 1.3 10^3/ul (0.8-2.9); LYMPHOCYTES % 10.9 % (15.0-51.0); MEAN CORPUSCULAR HEMOGLOBIN 30.8 pg (29.0-33.0); MEAN CORPUSCULAR HGB CONC 33.2 g/dl (32.0-37.0); MEAN CORPUSCULAR VOLUME 92.9 fl (82.0-101.0); MEAN PLATELET VOLUME 10.9 fl (7.4-10.4); MONOCYTE # 0.9 10^3/ul (0.3-0.9); MONOCYTES % 7.5 % (0.0-11.0); NEUTROPHIL # 9.5 10^3/ul (1.6-7.5); NEUTROPHILS % 80.9 % (39.0-77.0); PLATELET COUNT 114 10^3/UL (140-415); RED BLOOD COUNT 2.53 10^6/ul (4.70-6.10); RED CELL DISTRIBUTION WIDTH 16.5 % (11.5-14.5); WHITE BLOOD COUNT 11.7 10^3/ul (4.8-10.8)
[2017-03-30 07:26] LABS: INR 1.61; PROTIME 19.3 Sec (12.2-14.2); PT RATIO 1.5
[2017-03-30 07:27] LABS: PARTIAL THROMBOPLASTIN TIME 44.1 Sec (25.0-35.0)
[2017-03-30 07:28] LABS: ALBUMIN 2.6 g/dl (3.3-4.9); ALBUMIN/GLOBULIN RATIO 1.08; BILIRUBIN,INDIRECT 2.1 mg/dl (0-1.1); BILIRUBIN,TOTAL 2.1 mg/dl (0.2-1.3); CALCIUM 7.6 mg/dl (8.4-10.2); CREATININE 0.61 mg/dl (0.61-1.24); MAGNESIUM 1.8 mg/dl (1.7-2.5); PHOSPHORUS 1.5 mg/dl (2.5-4.9)
[2017-03-30] MEDS: INSULIN ASPART [NOVOLOG] 3 ML PEN SC SCH ×4 (08:57→21:00)
[2017-03-30] MEDS: FAMOTIDINE 20 MG INJ IV SCH (09:00)
[2017-03-30] MEDS: ENOXAPARIN 40 MG/0.4 ML SYG SC SCH (09:01)
--- NOTE | 2017-03-30 10:03 | CONS ---
Date/Time of Note Date/Time of Note DATE: 03/30/17 TIME: 10:02 Consult Date/Type/Reason Admit Date/Time Mar 28, 2017 at 05:21 Initial Consult Date Subjective No acute events overnight, on HEAD OF DATA pain pump. Objective Vital Signs Date Time Temp Pulse Resp B/P Pulse Ox O2 Delivery O2 Flow Rate FiO2 03/30/17 09:30 101 23 135/63 03/30/17 07:30 99.7 03/30/17 07:00 96 Nasal Cannula 03/29/17 10:09 21 03/29/17 08:00 Intake and Output 03/29/17 03/29/17 03/30/17 15:00 23:00 07:00 Intake Total 955 ml 925 ml 400 ml Output Total 480 ml 795 ml 1600 ml Balance 475 ml 130 ml -1200 ml Exam GENERAL: patient is lying in bed, no acute distress. HEENT: Pupils equal, round, react to light. Extraocular muscles intact. NECK: Supple, no thyromegaly. LUNGS: Clear to auscultation bilaterally. CARDIOVASCULAR: S1, S2 heard. No rubs or gallops. ABDOMEN: No rebound or guarding. Bandage is covering surgical incisions. MUSCULOSKELETAL: No lower extremity edema bilaterally. NEUROLOGIC: No focal deficits. Results/Medications Result Diagram: 03/30/17 0532 03/30/17 0532 Results 24 hrs Laboratory Tests Test 03/29/17 12:06 03/29/17 17:48 03/29/17 18:04 03/29/17 21:10 Bedside Glucose 200 193 186 Lactic Acid Level 4.4 *H Test 03/30/17 01:11 03/30/17 01:28 03/30/17 05:22 03/30/17 05:32 Bedside Glucose 224 H 210 Lab Scanned Report REFERENCE LAB White Blood Count 11.7 H Red Blood Count 2.53 L Hemoglobin 7.8 L Hematocrit 23.5 L Mean Corpuscular Volume 92.9 Mean Corpuscular Hemoglobin 30.8 Mean Corpuscular Hemoglobin Concent 33.2 Red Cell Distribution Width 16.5 H Platelet Count 114 L Mean Platelet Volume 10.9 H Neutrophils % 80.9 H Lymphocytes % 10.9 L Monocytes % 7.5 Eosinophils % 0.1 Basophils % 0.2 Nucleated Red Blood Cells % 0.0 Neutrophils # 9.5 H Lymphocytes # 1.3 Monocytes # 0.9 Eosinophils # 0.0 Basophils # 0.0 Nucleated Red Blood Cells # 0.0 Prothrombin Time 19.3 H Prothrombin Time Ratio 1.5 INR International Normalized Ratio 1.61 Activated Partial Thromboplast Time 44.1 H Sodium Level 134 L Potassium Level 4.0 Chloride Level 102 Carbon Dioxide Level 28 Anion Gap 8 Blood Urea Nitrogen 14 Creatinine 0.61 Glucose Level 155 # Lactic Acid Level 2.0 Calcium Level 7.6 L Phosphorus Level 1.5 #L Magnesium Level 1.8 Total Bilirubin 2.1 H Direct Bilirubin 0.00 Indirect Bilirubin 2.1 H Aspartate Amino Transf (AST/SGOT) 442 H Alanine Aminotransferase (ALT/SGPT) 297 H Alkaline Phosphatase 70 Total Protein 5.0 L Albumin 2.6 L Globulin 2.40 Albumin/Globulin Ratio 1.08 Test 03/30/17 08:02 Bedside Glucose 178 Medications Current Medications Acetaminophen/ Hydrocodone Bitart ([place] (5/325)) 1 tab Q4H PRN PO PAIN LEVEL 4 -7; Start 03/28/17 at 17:00 Acetaminophen/ Hydrocodone Bitart ([place] (5/325)) 2 tab Q4H PRN PO PAIN LEVEL 7 -10; Start 03/28/17 at 17:00 Hydromorphone HCl (Dilaudid) 0.5 mg Q2 PRN IV PAIN; Start 03/28/17 at 17:00 Hydromorphone HCl (Dilaudid) 1 mg Q2 PRN IV PAIN; Start 03/28/17 at 17:00 Docusate Sodium (Colace) 100 mg BID PRN PO CONSTIPATION; Start 03/28/17 at 17:00 Bisacodyl (Dulcolax Supp) 10 mg BID PRN IN CONSTIPATION; Start 03/28/17 at 17:00 Sodium Biphosphate/ Sodium Phosphate (Fleet Enema) 133 ml BID PRN IN CONSTIPATION; Start 03/28/17 at 17:00 Famotidine (Pepcid Iv) 20 mg DAILY IV Last administered on 03/30/17 09:00; Admin Dose 20 MG; Start 03/29/17 at 09:00 Enoxaparin Sodium (Lovenox) 40 mg DAILY SC Last administered on 03/30/17 09:01 ; Admin Dose 40 MG; Start 03/29/17 at 18:00 Naloxone HCl (Narcan) 0.2 mg Q2M PRN IV RR 8 BREATHS/MIN OR LESS; Start at 17:00 Hydromorphone HCl (Dilaudid HEAD OF DATA) Q4PCA IV Last administered on 03/28/17 19:22 ; Admin Dose 6 MG; Start 03/28/17 at 17:00 Diagnostic Test (Pha) 1 ea 1 ea 02 XX Last administered on 03/30/17 01:25; Admin Dose 1 EA; Start 03/30/17 at 02:00 Sodium Phosphate/ Sodium Chloride (Sodium Phosphate/NS) 255 ml @ 63.75 mls/ hr ONCE ONCE IVPB ; Start 03/30/17 at 10:00; Stop 03/30/17 at 13:59; Status UNV Assessment/Plan Chief Complaint/Hosp Course ASSESSMENT AND PLAN: A 71-year-old male status post open liver resection for colon cancer with metastasis to the liver, prior history of hypertension and dermatitis. 1. Status post open liver resection - POD # 2. The patient has history of colon cancer previously stage III and previously had a colectomy and chemotherapy, but now unfortunately cancer has advanced to metastasis to the liver and again he underwent an open liver resection. - Continue follow up with the postop recommendations and orders from the hepatobiliary surgery team including pain control, medications, lab orders, IV fluids. - monitor his lactic acid - nL now - Monitor platelet levels as well as he has had some mild thrombocytopenia, but no signs of any bleeding. - replete low electrolytes 2. Hypertension. Again, blood pressure stable. Continue to monitor for now. Consider Hydralazine p.r.n. 3. History of dermatitis. Continue to monitor for now. 4. Again, history of colon cancer, adenocarcinoma, with metastasis. See #1. 5. Gastrointestinal prophylaxis. Pepcid. 6. Deep venous thrombosis prophylaxis - Lovenox. Critical care time spent today = 40 min. Problems: THANIA GARCIA Mar 30, 2017 10:03
[2017-03-30] MEDS ORDERED: SODIUM PHOSPHATE 20 MEQ in SOD CHLORIDE 0.9% 250 ML IVPB ONE (11:30)
[2017-03-30] MEDS: INSULIN GLARGINE [LANtus] 3 ML PEN SC SCH (11:35)
--- NOTE | 2017-03-30 20:17 | PN ---
Date/Time of Note Date/Time of Note DATE: 03/30/17 TIME: 20:13 Assessment/Plan Lines/Catheters IV Catheter Type (from Nrs): Peripheral IV Perdomo in Place (from Nrs): Yes Assessment/Plan Assessment/Plan [facility] Progress Note Date of Service: 03/30/17 Today's Impression & Plan: Overall doing well post op without major issues. No major wound problems. LFT's and INR improving, indicating acceptable and viable liver function. Awaiting further return of bowel function. No obvious evidence of bleeding. Drain output looking ss with possible hint of bile. Not unexpected given technique used and will have to be tested in the coming days. Very important to focus on increased activity and pulmonary toilet. With above assessment, I've recommended the following for today: 1. Cont oral conversion 2. PT/OT 3. Increase activity 4. Increase ICS 5. Labs in am 6. Saline lock IV Thank you again for your great care of this very pleasant patient and wonderful family. If there are any questions, please feel free to call me at [phone]. TOTAL VISIT TIME: 20 minutes of which more than half was spent in [id number] discussion with the patient, possibly including family, as well as coordination of care between multiple physicians and providers. Disclaimer: Inadvertent spelling or grammatical errors are likely due to EHR/ dictation software use and do not reflect on the overall quality of patient care. Updated Clinical Summary: A very pleasant 71-year-old gentleman with comorbidity of hypertension and previous cholecystectomy, status post laparoscopic hand-assisted sigmoid colectomy with primary anastomosis by Dr. Nestor Kasper at [facility] September 2015 for a stage III (PT3PN1) originally thought to be M0, 1 out of 14 lymph node positive with focally suspected lymphovascular invasion and no perineural invasion and 1 tumor deposit low grade (I to II) adenocarcinoma sized at 3 x 3 cm without any evidence of perforation and with negative margins. Patient then received modified FOLFOX 6 consisting of 5-FU, leucovorin and oxaliplatin for 12 cycles. He was noted to have increase in CEA from 3.5 to 11.7, 12/2016. Had CT done on 01/06/2017 showed at least 2 hypermetabolic hypoattenuating hepatic metastasis newly hypermetabolic from the prior PET CT measuring 1.9 cm with SUV of 6.7 and 1 cm lesion with SUV 4.3. The 1.9 cm mass measured 0.3 cm on the prior CT 12/19/2015 and the 1 cm mass was stable in size; however, again was thought to be newly hypermetabolic. There was also decreased metabolic uptake with previously seen mildly FDG avid periportal and left pelvic lymph nodes from prior which may be reactive inflammatory versus malignant process. There was increased ileocecal metabolic uptake and intraluminal narrowing similar to prior SUV maximum level of 5.4 previous CV maximum was 5.6 and this was thought to may be physiologic, but malignancy could not be entirely ruled out. Colonoscopy 03/10/17 with removal of 7 small polyps and no evidence of malignancy done [place] [facility] [place] S/p laparoscopic, converted to open exploration of abdominal cavity with lysis of adhesions, partial hepatectomy in the form of central hepatectomy with removal of segment 4B, partial hepatectomy, removal of segment 6 and 7, core needle liver biopsy segment 5 (6 cores) with both frozen sections intraoperatively as well as for permanent sections at [facility] 03/28/17. COMORBIDITIES: 1. 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 2. BMI 29.9. 3. Hypertension. 4. Dermatitis. 5. History of acute cholecystitis, status post laparoscopic cholecystectomy 10/2012. 6. Mother with stomach cancer. 7. Colonoscopy 03/10/17 with removal of 7 small polyps and no evidence of malignancy done at [facility] [place]. 8. S/p laparoscopic, converted to open exploration of abdominal cavity with lysis of adhesions, partial hepatectomy in the form of central hepatectomy with removal of segment 4B, partial hepatectomy, removal of segment 6 and 7, core needle liver biopsy segment 5 (6 cores) with both frozen sections intraoperatively as well as for permanent sections at [facility] 03/28/17. Subjective: No major events or complaints; no major abd pain and under control with medications; no n/v/d; no sob or cp; - flatus; - BM; minimal activity Objective: Vitals: See below Exam: GENERAL: On exam, the patient was sitting in a chair and appeared to be comfortable and in no acute distress. ABDOMEN: Soft, nontender and nondistended. Incision dressings d/c'd and incisions are clean, dry and intact without any evidence of erythema, edema, discharge, or hernia. Surgery drain ss with ? hint of bile. There are no peritoneal signs or guarding. SKIN: Skin appears to be pink and feels warm to touch. NEUROLOGIC: Patient is awake, alert, and follows commands appropriately. Exam/Review of Systems Vital Signs Vitals Vital Signs Date Time Temp Pulse Resp B/P Pulse Ox O2 Delivery O2 Flow Rate FiO2 03/30/17 18:30 104 22 03/30/17 18:00 137/72 03/30/17 16:30 98.8 03/30/17 11:00 Room Air 03/30/17 07:00 96 03/29/17 10:09 21 03/29/17 08:00 Intake and Output 03/29/17 03/29/17 03/30/17 15:00 23:00 07:00 Intake Total 955 ml 925 ml 400 ml Output Total 480 ml 795 ml 1600 ml Balance 475 ml 130 ml -1200 ml Results Result Diagram: 03/30/17 0532 03/30/17 0532 SARITA WHITAKER M.D. Mar 30, 2017 20:16
[2017-03-31] VITALS: BP 130/61; PULSE 92; RESP 15
[2017-03-31] MEDS: ACCU-CHEK XX SCH (02:00)
[2017-03-31 05:32] LABS: ADD SCAN DIFF NO
[2017-03-31 05:40] LABS: BASOPHILS % 0.2 % (0.0-2.0); EOSINOPHILS % 0.3 % (0.0-7.0); HEMATOCRIT 21.9 % (42.0-52.0); HEMOGLOBIN 7.4 g/dl (14.0-18.0); LYMPHOCYTES # 1.5 10^3/ul (0.8-2.9); LYMPHOCYTES % 14.6 % (15.0-51.0); MEAN CORPUSCULAR HEMOGLOBIN 31.5 pg (29.0-33.0); MEAN CORPUSCULAR HGB CONC 33.8 g/dl (32.0-37.0); MEAN CORPUSCULAR VOLUME 93.2 fl (82.0-101.0); MEAN PLATELET VOLUME 10.2 fl (7.4-10.4); MONOCYTE # 0.9 10^3/ul (0.3-0.9); MONOCYTES % 8.3 % (0.0-11.0); NEUTROPHILS % 75.8 % (39.0-77.0); NUCLEATED RED BLOOD CELLS% 0.2 /100WBC (0.0-0.0); PLATELET COUNT 134 10^3/UL (140-415); RED BLOOD COUNT 2.35 10^6/ul (4.70-6.10); RED CELL DISTRIBUTION WIDTH 15.9 % (11.5-14.5); WHITE BLOOD COUNT 10.5 10^3/ul (4.8-10.8)
[2017-03-31 05:50] LABS: INR 1.37; PROTIME 16.9 Sec (12.2-14.2); PT RATIO 1.3
[2017-03-31] MEDS: INSULIN ASPART [NOVOLOG] 3 ML PEN SC SCH ×4 (07:50→21:00)
[2017-03-31 08:06] VITALS: BP 131/61
[2017-03-31] MEDS: FAMOTIDINE 20 MG INJ IV SCH (08:40)
[2017-03-31] MEDS: INSULIN GLARGINE [LANtus] 3 ML PEN SC SCH (08:44)
[2017-03-31] MEDS: ENOXAPARIN 40 MG/0.4 ML SYG SC SCH (08:46)
[2017-03-31 09:00] LABS: ALBUMIN 2.5 g/dl (3.3-4.9); BILIRUBIN,INDIRECT 1.6 mg/dl (0-1.1); BILIRUBIN,TOTAL 1.6 mg/dl (0.2-1.3); MAGNESIUM 1.8 mg/dl (1.7-2.5); PHOSPHORUS 1.8 mg/dl (2.5-4.9); TOTAL PROTEIN 4.7 g/dl (6.1-8.1)
--- NOTE | 2017-03-31 14:49 | CONS ---
Date/Time of Note Date/Time of Note DATE: 03/31/17 TIME: 14:48 Consult Date/Type/Reason Admit Date/Time Mar 28, 2017 at 05:21 Subjective Pt off GLASS DECORATOR pump now. On diet. Objective Vital Signs Date Time Temp Pulse Resp B/P Pulse Ox O2 Delivery O2 Flow Rate FiO2 03/31/17 08:06 98.2 90 131/61 93 03/31/17 05:13 18 03/30/17 11:00 Room Air 03/29/17 10:09 21 03/29/17 08:00 Intake and Output 03/30/17 03/30/17 03/31/17 15:00 23:00 07:00 Intake Total 650 ml 300 ml 350 ml Output Total 1040 ml 630 ml 1030 ml Balance -390 ml -330 ml -680 ml Exam GENERAL: patient is lying in bed, no acute distress. HEENT: Pupils equal, round, react to light. Extraocular muscles intact. NECK: Supple, no thyromegaly. LUNGS: Clear to auscultation bilaterally. CARDIOVASCULAR: S1, S2 heard. No rubs or gallops. ABDOMEN: No rebound or guarding. MUSCULOSKELETAL: No lower extremity edema bilaterally. NEUROLOGIC: No focal deficits. Results/Medications Result Diagram: 03/31/17 0436 03/30/17 0532 Results 24 hrs Laboratory Tests Test 03/30/17 17:39 03/30/17 20:56 03/31/17 02:02 03/31/17 04:36 Bedside Glucose 281 H 230 H 139 White Blood Count 10.5 Red Blood Count 2.35 L Hemoglobin 7.4 L Hematocrit 21.9 L Mean Corpuscular Volume 93.2 Mean Corpuscular Hemoglobin 31.5 Mean Corpuscular Hemoglobin Concent 33.8 Red Cell Distribution Width 15.9 H Platelet Count 134 L Mean Platelet Volume 10.2 Neutrophils % 75.8 Lymphocytes % 14.6 L Monocytes % 8.3 Eosinophils % 0.3 Basophils % 0.2 Nucleated Red Blood Cells % 0.2 H Neutrophils # 8.0 H Lymphocytes # 1.5 Monocytes # 0.9 Eosinophils # 0.0 Basophils # 0.0 Nucleated Red Blood Cells # 0.0 Prothrombin Time 16.9 H Prothrombin Time Ratio 1.3 INR International Normalized Ratio 1.37 Activated Partial Thromboplast Time 40.0 H Phosphorus Level 1.8 L Magnesium Level 1.8 Total Bilirubin 1.6 H Direct Bilirubin 0.00 Indirect Bilirubin 1.6 H Aspartate Amino Transf (AST/SGOT) 326 H Alanine Aminotransferase (ALT/SGPT) 286 H Alkaline Phosphatase 78 Total Protein 4.7 L Albumin 2.5 L Test 03/31/17 08:39 03/31/17 12:10 Bedside Glucose 117 128 Medications Current Medications Acetaminophen/ Hydrocodone Bitart ([place] (5/325)) 1 tab Q4H PRN PO PAIN LEVEL 4 -7; Start 03/28/17 at 17:00 Acetaminophen/ Hydrocodone Bitart ([place] (5/325)) 2 tab Q4H PRN PO PAIN LEVEL 7 -10; Start 03/28/17 at 17:00 Hydromorphone HCl (Dilaudid) 0.5 mg Q2 PRN IV PAIN; Start 03/28/17 at 17:00 Hydromorphone HCl (Dilaudid) 1 mg Q2 PRN IV PAIN; Start 03/28/17 at 17:00 Docusate Sodium (Colace) 100 mg BID PRN PO CONSTIPATION; Start 03/28/17 at 17:00 Bisacodyl (Dulcolax Supp) 10 mg BID PRN [place] CONSTIPATION; Start 03/28/17 at 17:00 Sodium Biphosphate/ Sodium Phosphate (Fleet Enema) 133 ml BID PRN [place] CONSTIPATION; Start 03/28/17 at 17:00 Enoxaparin Sodium (Lovenox) 40 mg DAILY SC Last administered on 03/31/17 08:46 ; Admin Dose 40 MG; Start 03/29/17 at 18:00 Naloxone HCl (Narcan) 0.2 mg Q2M PRN IV RR 8 BREATHS/MIN OR LESS; Start at 17:00 Hydromorphone HCl (Dilaudid GLASS DECORATOR) Q4PCA IV Last administered on 03/28/17 19:22 ; Admin Dose 6 MG; Start 03/28/17 at 17:00 Diagnostic Test (Pha) (Accu-Chek) 1 ea 02 XX Last administered on 03/30/17 01: 25; Admin Dose 1 EA; Start 03/30/17 at 02:00 Insulin Glargine (Lantus) 10 unit DAILY@08 SC Last administered on 03/31/17 08: 44; Admin Dose 10 UNIT; Start 03/30/17 at 10:30 Famotidine 20 mg 20 mg DAILY IV Last administered on 03/31/17t 08:40; Admin Dose 20 MG; Start 03/31/17 at 09:00 Potassium Phosphate/Sodium Chloride (K Phos (Meq)/NS) 254.5455 ml @ 63.636 m... ONCE ONCE IVPB ; Start 03/31/17 at 15:00; Stop 03/31/17 at 18:59; Status UNV Assessment/Plan Chief Complaint/Hosp Course ASSESSMENT AND PLAN: A 71-year-old male status post open liver resection for colon cancer with metastasis to the liver, prior history of hypertension and dermatitis. 1. Status post open liver resection - POD # 3. The patient has history of colon cancer previously stage III and previously had a colectomy and chemotherapy, but now unfortunately cancer has advanced to metastasis to the liver and again he underwent an open liver resection. - Continue follow up with the postop recommendations and orders from the hepatobiliary surgery team including pain control, medications, lab orders, IV fluids. - Monitor platelet levels as well as he has had some mild thrombocytopenia, but no signs of any bleeding. - replete low electrolytes (low phos today again) 2. Hypertension. Again, blood pressure stable. Continue to monitor for now. Consider Hydralazine p.r.n. 3. History of dermatitis. Continue to monitor for now. 4. Again, history of colon cancer, adenocarcinoma, with metastasis. See #1. 5. Gastrointestinal prophylaxis. Pepcid. 6. Deep venous thrombosis prophylaxis - Lovenox. Problems: THANIA GARCIA Mar 31, 2017 14:49
--- NOTE | 2017-03-31 15:01 | PN ---
Date/Time of Note Date/Time of Note DATE: 03/31/17 TIME: 14:59 Assessment/Plan Lines/Catheters IV Catheter Type (from [facility]): Peripheral IV Perdomo in Place (from [facility]): Yes Assessment/Plan Assessment/Plan [facility] Progress Note Date of Service: 03/31/17 Today's Impression & Plan: Overall doing well post op without major issues. No major wound problems. LFT's and INR improving. Awaiting further return of bowel function. No obvious evidence of bleeding. Drain output looking ss with no further hint of bile. Very important to focus on increased activity and pulmonary toilet. With above assessment, I've recommended the following for today: 1. Cont oral conversion 2. PT/OT 3. Increase activity 4. Increase ICS 5. Labs in am 6. Saline lock IV 7. Possible d/c planning for 24-48 hrs Thank you again for your great care of this very pleasant patient and wonderful family. If there are any questions, please feel free to call me at [phone]. TOTAL VISIT TIME: 20 minutes of which more than half was spent in [id number] discussion with the patient, possibly including family, as well as coordination of care between multiple physicians and providers. Disclaimer: Inadvertent spelling or grammatical errors are likely due to EHR/ dictation software use and do not reflect on the overall quality of patient care. Updated Clinical Summary: A very pleasant 71-year-old gentleman with comorbidity of hypertension and previous cholecystectomy, status post laparoscopic hand-assisted sigmoid colectomy with primary anastomosis by Dr. Nestor Kasper at [facility] September 2015 for a stage III (PT3PN1) originally thought to be M0, 1 out of 14 lymph node positive with focally suspected lymphovascular invasion and no perineural invasion and 1 tumor deposit low grade (I to II) adenocarcinoma sized at 3 x 3 cm without any evidence of perforation and with negative margins. Patient then received modified FOLFOX 6 consisting of 5-FU, leucovorin and oxaliplatin for 12 cycles. He was noted to have increase in CEA from 3.5 to 11.7, 12/2016. Had CT done on 01/06/2017 showed at least 2 hypermetabolic hypoattenuating hepatic metastasis newly hypermetabolic from the prior PET CT measuring 1.9 cm with SUV of 6.7 and 1 cm lesion with SUV 4.3. The 1.9 cm mass measured 0.3 cm on the prior CT 12/19/2015 and the 1 cm mass was stable in size; however, again was thought to be newly hypermetabolic. There was also decreased metabolic uptake with previously seen mildly FDG avid periportal and left pelvic lymph nodes from prior which may be reactive inflammatory versus malignant process. There was increased ileocecal metabolic uptake and intraluminal narrowing similar to prior SUV maximum level of 5.4 previous CV maximum was 5.6 and this was thought to may be physiologic, but malignancy could not be entirely ruled out. Colonoscopy 03/10/17 with removal of 7 small polyps and [place] evidence of malignancy [place] [facility] [place]/p [place], converted to open exploration of abdominal cavity with lysis of adhesions, partial hepatectomy in the form of central hepatectomy with removal of segment 4B, partial hepatectomy, removal of segment 6 and 7, core needle liver biopsy segment 5 (6 cores) with both frozen sections intraoperatively as well as for permanent sections at [facility] 03/28/17. COMORBIDITIES: 1. 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 2. BMI 29.9. 3. Hypertension. 4. Dermatitis. 5. History of acute cholecystitis, status post laparoscopic cholecystectomy 10/2012. 6. Mother with stomach cancer. 7. Colonoscopy 03/10/17 with removal of 7 small polyps and no evidence of malignancy done [place] [facility] [place] 8. S/p laparoscopic, converted to open exploration of abdominal cavity with lysis of adhesions, partial hepatectomy in the form of central hepatectomy with removal of segment 4B, partial hepatectomy, removal of segment 6 and 7, core needle liver biopsy segment 5 (6 cores) with both frozen sections intraoperatively as well as for permanent sections at [facility] 03/28/17. Subjective: No major events or complaints; no major abd pain and under control with medications; no n/v/d; no sob or cp; + flatus; - BM; + activity Objective: Vitals: See below Exam: GENERAL: On exam, the patient was laying in bed and appeared to be comfortable and in no acute distress. ABDOMEN: Soft, nontender and nondistended. Incisions are clean, dry and intact without any evidence of erythema, edema, discharge, or hernia. Surgery drain ss with no further hint of bile. There are no peritoneal signs or guarding. SKIN: Skin appears to be pink and feels warm to touch. NEUROLOGIC: Patient is awake, alert, and follows commands appropriately. Exam/Review of Systems Vital Signs Vitals Vital Signs Date Time Temp Pulse Resp B/P Pulse Ox O2 Delivery O2 Flow Rate FiO2 03/31/17 08:06 98.2 90 131/61 93 03/31/17 05:13 18 03/30/17 11:00 Room Air 03/29/17 10:09 21 03/29/17 08:00 Intake and Output 03/30/17 03/30/17 03/31/17 15:00 23:00 07:00 Intake Total 650 ml 300 ml 350 ml Output Total 1040 ml 630 ml 1030 ml Balance -390 ml -330 ml -680 ml Results Result Diagram: 03/31/17 0436 03/30/17 0532 SARITA WHITAKER M.D. Mar 31, 2017 15:01
[2017-03-31] MEDS ORDERED: POTASSIUM PHOSPHATE 20 MEQ in SOD CHLORIDE 0.9% 250 ML IVPB ONE (16:00)
[2017-03-31 17:18] LABS: CALCIUM 7.1 mg/dl (8.4-10.2); CREATININE 0.59 mg/dl (0.61-1.24); POTASSIUM 3.5 mmol/L (3.5-5.1)
[2017-03-31 19:00] VITALS: BP 153/70; RESP 18
[2017-04-01] MEDS: ACCU-CHEK XX SCH (02:00)
[2017-04-01 05:04] LABS: ADD SCAN DIFF NO
[2017-04-01 05:13] LABS: BASOPHILS % 0.1 % (0.0-2.0); EOSINOPHILS # 0.1 10^3/ul (0.0-0.5); EOSINOPHILS % 0.8 % (0.0-7.0); HEMATOCRIT 22.9 % (42.0-52.0); HEMOGLOBIN 7.5 g/dl (14.0-18.0); LYMPHOCYTES # 1.4 10^3/ul (0.8-2.9); LYMPHOCYTES % 14.4 % (15.0-51.0); MEAN CORPUSCULAR HEMOGLOBIN 30.6 pg (29.0-33.0); MEAN CORPUSCULAR HGB CONC 32.8 g/dl (32.0-37.0); MEAN CORPUSCULAR VOLUME 93.5 fl (82.0-101.0); MEAN PLATELET VOLUME 9.9 fl (7.4-10.4); MONOCYTE # 1.1 10^3/ul (0.3-0.9); MONOCYTES % 11.3 % (0.0-11.0); NEUTROPHIL # 7.3 10^3/ul (1.6-7.5); NEUTROPHILS % 72.7 % (39.0-77.0); NUCLEATED RED BLOOD CELLS% 0.4 /100WBC (0.0-0.0); PLATELET COUNT 143 10^3/UL (140-415); RED BLOOD COUNT 2.45 10^6/ul (4.70-6.10); RED CELL DISTRIBUTION WIDTH 15.8 % (11.5-14.5)
[2017-04-01 05:29] LABS: PHOSPHORUS 2.3 mg/dl (2.5-4.9)
[2017-04-01 06:12] LABS: ALBUMIN 2.7 g/dl (3.3-4.9); BILIRUBIN,INDIRECT 1.8 mg/dl (0-1.1); BILIRUBIN,TOTAL 1.8 mg/dl (0.2-1.3); TOTAL PROTEIN 5.3 g/dl (6.1-8.1)
[2017-04-01 07:52] VITALS: BP 143/66; RESP 18
[2017-04-01] MEDS: INSULIN ASPART [NOVOLOG] 3 ML PEN SC SCH ×3 (08:52→17:55)
[2017-04-01] MEDS: FAMOTIDINE 20 MG INJ IV SCH (08:57)
[2017-04-01] MEDS: INSULIN GLARGINE [LANtus] 3 ML PEN SC SCH (09:07)
[2017-04-01] MEDS: ENOXAPARIN 40 MG/0.4 ML SYG SC SCH (09:10)
--- NOTE | 2017-04-01 12:05 | CONS ---
Date/Time of Note Date/Time of Note DATE: 04/01/17 TIME: 12:01 Consult Date/Type/Reason Admit Date/Time Mar 28, 2017 at 05:21 Subjective Pt still with some drainage, no acute events overnight otherwise. Objective Vital Signs Date Time Temp Pulse Resp B/P Pulse Ox O2 Delivery O2 Flow Rate FiO2 04/01/17 07:52 98.2 80 18 143/66 95 03/30/17 11:00 Room Air 03/29/17 10:09 21 03/29/17 08:00 Intake and Output 03/31/17 03/31/17 04/01/17 15:00 23:00 07:00 Intake Total 254.5455 ml 700 ml Output Total 80 ml 80 ml 2230 ml Balance -80 ml 174.5455 ml -1530 ml Exam GENERAL: patient is lying in bed, no acute distress. HEENT: Pupils equal, round, react to light. Extraocular muscles intact. NECK: Supple, no thyromegaly. LUNGS: Clear to auscultation bilaterally. CARDIOVASCULAR: S1, S2 heard. No rubs or gallops. ABDOMEN: No rebound or guarding. MUSCULOSKELETAL: No lower extremity edema bilaterally. NEUROLOGIC: No focal deficits. Results/Medications Result Diagram: 04/01/17 0450 03/31/17 1603 Results 24 hrs Laboratory Tests Test 03/31/17 12:10 03/31/17 16:03 03/31/17 17:18 03/31/17 21:26 Bedside Glucose 128 131 149 Sodium Level 134 L Potassium Level 3.5 Chloride Level 103 Carbon Dioxide Level 26 Anion Gap 9 Blood Urea Nitrogen 12 Creatinine 0.59 L Glucose Level 122 Calcium Level 7.1 L Test 04/01/17 04:50 04/01/17 08:48 04/01/17 11:51 White Blood Count 10.0 Red Blood Count 2.45 L Hemoglobin 7.5 L Hematocrit 22.9 L Mean Corpuscular Volume 93.5 Mean Corpuscular Hemoglobin 30.6 Mean Corpuscular Hemoglobin Concent 32.8 Red Cell Distribution Width 15.8 H Platelet Count 143 Mean Platelet Volume 9.9 Neutrophils % 72.7 Lymphocytes % 14.4 L Monocytes % 11.3 H Eosinophils % 0.8 Basophils % 0.1 Nucleated Red Blood Cells % 0.4 H Neutrophils # 7.3 Lymphocytes # 1.4 Monocytes # 1.1 H Eosinophils # 0.1 Basophils # 0.0 Nucleated Red Blood Cells # 0.0 Phosphorus Level 2.3 L Magnesium Level 2.0 Total Bilirubin 1.8 H Direct Bilirubin 0.00 Indirect Bilirubin 1.8 H Aspartate Amino Transf (AST/SGOT) 165 H Alanine Aminotransferase (ALT/SGPT) 219 H Alkaline Phosphatase 93 Total Protein 5.3 L Albumin 2.7 L Bedside Glucose 124 173 Medications Current Medications Acetaminophen/ Hydrocodone Bitart ([place] (5/325)) 1 tab Q4H PRN PO PAIN LEVEL 4 -7; Start 03/28/17 at 17:00 Acetaminophen/ Hydrocodone Bitart ([place] (5/325)) 2 tab Q4H PRN PO PAIN LEVEL 7 -10; Start 03/28/17 at 17:00 Hydromorphone HCl (Dilaudid) 0.5 mg Q2 PRN IV PAIN; Start 03/28/17 at 17:00 Hydromorphone HCl (Dilaudid) 1 mg Q2 PRN IV PAIN; Start 03/28/17 at 17:00 Docusate Sodium (Colace) 100 mg BID PRN PO CONSTIPATION; Start 03/28/17 at 17:00 Bisacodyl (Dulcolax Supp) 10 mg BID PRN [place] CONSTIPATION Last administered on 10:44; Admin Dose 10 MG; Start 03/28/17 at 17:00 Sodium Biphosphate/ Sodium Phosphate (Fleet Enema) 133 ml BID PRN [place] CONSTIPATION; Start 03/28/17 at 17:00 Enoxaparin Sodium (Lovenox) 40 mg DAILY SC Last administered on 04/01/17 09:10 ; Admin Dose 40 MG; Start 03/29/17 at 18:00 Naloxone HCl (Narcan) 0.2 mg Q2M PRN IV RR 8 BREATHS/MIN OR LESS; Start at 17:00 Diagnostic Test (Pha) (Accu-Chek) 1 ea 02 XX Last administered on 03/30/17 01: 25; Admin Dose 1 EA; Start 03/30/17 at 02:00 Insulin Glargine (Lantus) 10 unit DAILY@08 SC Last administered on 04/01/17 09 :07; Admin Dose 10 UNIT; Start 03/30/17 at 10:30 Famotidine 20 mg 20 mg DAILY IV Last administered on 04/01/17t 08:57; Admin Dose 20 MG; Start 03/31/17 at 09:00 Potassium Phosphate/Sodium Chloride (K Phos (Meq)/NS) 254.5455 ml @ 63.636 m... ONCE ONCE IVPB ; Start 04/01/17 at 13:00; Stop 04/01/17 at 16:59 Assessment/Plan Chief Complaint/Hosp Course ASSESSMENT AND PLAN: A 71-year-old male status post open liver resection for colon cancer with metastasis to the liver, prior history of hypertension and dermatitis. 1. Status post open liver resection - POD # 4. The patient has history of colon cancer previously stage III and previously had a colectomy and chemotherapy, but now unfortunately cancer has advanced to metastasis to the liver and again he underwent an open liver resection. - Continue follow up with the postop recommendations and orders from the hepatobiliary surgery team including pain control, medications, lab orders, IV fluids. - Monitor platelet levels as well as he has had some mild thrombocytopenia, but no signs of any bleeding. - replete low electrolytes (low phos today again) 2. Hypertension. Again, blood pressure stable. Continue to monitor for now. Consider Hydralazine p.r.n. 3. History of dermatitis. Continue to monitor for now. 4. Again, history of colon cancer, adenocarcinoma, with metastasis. See #1. 5. Gastrointestinal prophylaxis. Pepcid. 6. Deep venous thrombosis prophylaxis - Lovenox. Problems: THANIA GARCIA Apr 01, 2017 12:05
[2017-04-01] MEDS ORDERED: POTASSIUM PHOSPHATE 20 MEQ in SOD CHLORIDE 0.9% 250 ML IVPB ONE (13:00)
--- NOTE | 2017-04-01 13:50 | DS ---
Date/Time of Note Date/Time of Note DATE: 04/01/17 TIME: 13:47 Discharge Summary Admission/Discharge Info Admit Date/Time Mar 28, 2017 at 05:21 Discharge Date/Time Final Diagnosis Metastatic colon cancer to liver, s/p liver resection (segment 4B and segments 6 /7) Patient Condition: Good Hospital Course Updated Clinical Summary: A very pleasant 71-year-old gentleman with comorbidity of hypertension and previous cholecystectomy, status post laparoscopic hand-assisted sigmoid colectomy with primary anastomosis by Dr. Nestor Kasper at [facility] September 2015 for a stage III (PT3PN1) originally thought to be M0, 1 out of 14 lymph node positive with focally suspected lymphovascular invasion and no perineural invasion and 1 tumor deposit low grade (I to II) adenocarcinoma sized at 3 x 3 cm without any evidence of perforation and with negative margins. Patient then received modified FOLFOX 6 consisting of 5-FU, leucovorin and oxaliplatin for 12 cycles. He was noted to have increase in CEA from 3.5 to 11.7, 12/2016. Had CT done on 01/06/2017 showed at least 2 hypermetabolic hypoattenuating hepatic metastasis newly hypermetabolic from the prior PET CT measuring 1.9 cm with SUV of 6.7 and 1 cm lesion with SUV 4.3. The 1.9 cm mass measured 0.3 cm on the prior CT 12/19/2015 and the 1 cm mass was stable in size; however, again was thought to be newly hypermetabolic. There was also decreased metabolic uptake with previously seen mildly FDG avid periportal and left pelvic lymph nodes from prior which may be reactive inflammatory versus malignant process. There was increased ileocecal metabolic uptake and intraluminal narrowing similar to prior SUV maximum level of 5.4 previous CV maximum was 5.6 and this was thought to may be physiologic, but malignancy could not be entirely ruled out. Colonoscopy 03/10/17 with removal of 7 small polyps and no evidence of malignancy done at [facility] [place]. S/p laparoscopic, converted to open exploration of abdominal cavity with lysis of adhesions, partial hepatectomy in the form of central hepatectomy with removal of segment 4B, partial hepatectomy, removal of segment 6 and 7, core needle liver biopsy segment 5 (6 cores) with both frozen sections intraoperatively as well as for permanent sections at [facility] 03/28/17. COMORBIDITIES: 1. 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 2. BMI 29.9. 3. Hypertension. 4. Dermatitis. 5. History of acute cholecystitis, status post laparoscopic cholecystectomy 10/2012. 6. Mother with stomach cancer. 7. Colonoscopy 03/10/17 with removal of 7 small polyps and no evidence of malignancy done at [facility] [place]. 8. S/p laparoscopic, converted to open exploration of abdominal cavity with lysis of adhesions, partial hepatectomy in the form of central hepatectomy with removal of segment 4B, partial hepatectomy, removal of segment 6 and 7, core needle liver biopsy segment 5 (6 cores) with both frozen sections intraoperatively as well as for permanent sections at [facility] 03/28/17. Patient underwent an otherwise uncomplicated laparoscopic, converted to open exploration of abdominal cavity with lysis of adhesions, partial hepatectomy in the form of central hepatectomy with removal of segment 4B, partial hepatectomy , removal of segment 6 and 7, core needle liver biopsy segment 5 (6 cores) with both frozen sections intraoperatively as well as for permanent sections at [facility] 03/28/17. For a detailed report, please see my op note from same date. Post op , patient did very well without any evidence for major post-operative complication or wound problems. His drain was d/c'd 04/01/17. By the time of discharge, patient was tolerating a regular diet, had adequate pain control on oral pain medications, had shown return of bowel activity and was clinically stable. He is therefore being discharged today. In addition to his home meds, I wrote him for: 1. Gatzke (5/325) 40 tabs and no refill 2. Colace 25 and 2 3. Dulcolax 10 and 3 Discharge instructions include the following: "Please call [phone] if any of fever, nausea, vomiting, discharge from wound, wound redness, increase or sudden pain, blood in stool or vomit, or any other unusual signs or symptoms. Also, please call the same number in a few days to schedule an appointment for your follow up visit. Patient may remove dressings tomorrow. Showers OK starting tomorrow. No swimming , hot tub or bath for 2 weeks. No lifting more than 25 lbs for 8 weeks." Internal medicine: ASSESSMENT AND PLAN: A 71-year-old male status post open liver resection for colon cancer with metastasis to the liver, prior history of hypertension and dermatitis. 1. Status post open liver resection - POD # 4. The patient has history of colon cancer previously stage III and previously had a colectomy and chemotherapy, but now unfortunately cancer has advanced to metastasis to the liver and again he underwent an open liver resection. - Continue follow up with the postop recommendations and orders from the hepatobiliary surgery team including pain control, medications, lab orders, IV fluids. - Monitor platelet levels as well as he has had some mild thrombocytopenia, but no signs of any bleeding. - replete low electrolytes (low phos today again) 2. Hypertension. Again, blood pressure stable. Continue to monitor for now. Consider Hydralazine p.r.n. 3. History of dermatitis. Continue to monitor for now. 4. Again, history of colon cancer, adenocarcinoma, with metastasis. See #1. 5. Gastrointestinal prophylaxis. Pepcid. 6. Deep venous thrombosis prophylaxis - Lovenox. Home Meds Reported Medications Lisinopril* (Lisinopril*) 40 Mg Tablet, 40 MG PO DAILY, #30 TAB 03/28/17 Capecitabine* (Xeloda*) 500 Mg Tablet, 500 MG PO BID, TAB 01/30/17 Primary Care Provider Gris Jenkins Pending Labs Laboratory Tests Test 03/31/17 16:03 03/31/17 17:18 03/31/17 21:26 04/01/17 04:50 Sodium Level 134mmol/L (135-144) Potassium Level 3.5mmol/L (3.5-5.1) Chloride Level 103mmol/L (97-110) Carbon Dioxide Level 26mmol/L (21-31) Anion Gap 9 (8-16) Blood Urea Nitrogen 12mg/dl (7-20) Creatinine 0.59mg/dl (0.61-1.24) Glucose Level 122mg/dl (70-220) Calcium Level 7.1mg/dl (8.4-10.2) Bedside Glucose 131mg/dL (70-220) 149mg/dL (70-220) White Blood Count 10.010^3/ul (4.8-10.8) Red Blood Count 2.4510^6/ul (4.70-6.10) Hemoglobin 7.5g/dl (14.0-18.0) Hematocrit 22.9% (42.0-52.0) Mean Corpuscular Volume 93.5fl (82.0-101.0) Mean Corpuscular Hemoglobin 30.6pg (29.0-33.0) Mean Corpuscular Hemoglobin Concent 32.8g/dl (32.0-37.0) Red Cell Distribution Width 15.8% (11.5-14.5) Platelet Count 21538^3/UL (140-415) Mean Platelet Volume 9.9fl (7.4-10.4) Neutrophils % 72.7% (39.0-77.0) Lymphocytes % 14.4% (15.0-51.0) Monocytes % 11.3% (0.0-11.0) Eosinophils % 0.8% (0.0-7.0) Basophils % 0.1% (0.0-2.0) Nucleated Red Blood Cells % 0.4/100WBC (0.0-0.0) Neutrophils # 7.310^3/ul (1.6-7.5) Lymphocytes # 1.410^3/ul (0.8-2.9) Monocytes # 1.110^3/ul (0.3-0.9) Eosinophils # 0.110^3/ul (0.0-0.5) Basophils # 0.010^3/ul (0.0-0.1) Nucleated Red Blood Cells # 0.010^3/ul (0.0-0.0) Phosphorus Level 2.3mg/dl (2.5-4.9) Magnesium Level 2.0mg/dl (1.7-2.5) Total Bilirubin 1.8mg/dl (0.2-1.3) Direct Bilirubin 0.00mg/dl (0.00-0.20) Indirect Bilirubin 1.8mg/dl (0-1.1) Aspartate Amino Transf (AST/SGOT) 165IU/L (15-46) Alanine Aminotransferase (ALT/SGPT) 219IU/L (13-69) Alkaline Phosphatase 93IU/L (42-121) Total Protein 5.3g/dl (6.1-8.1) Albumin 2.7g/dl (3.3-4.9) Test 6/10/17 08:48 04/01/17 11:51 Bedside Glucose 124mg/dL (70-220) 173mg/dL (70-220) SARITA WHITAKER M.D. Apr 01, 2017 13:50
--- NOTE | 2017-04-01 13:51 | PDOCDIS ---
Discharge Instructions CONDITION Patient Condition: Good HOME CARE INSTRUCTIONS: Diet Instructions: RegularSpecial Diet: 1800 ADA ACTIVITY: Activity Restrictions: Avoid heavy lifting Do not Drive Bathing Restrictions: Shower OTHER ORDERS: Other Orders: "Please call [phone] if any of fever, nausea, vomiting, discharge from wound, wound redness, increase or sudden pain, blood in stool or vomit, or any other unusual signs or symptoms. Also, please call the same number in a few days to schedule an appointment for your follow up visit. Patient may remove dressings tomorrow. Showers OK starting tomorrow. No swimming , hot tub or bath for 2 weeks. No lifting more than 25 lbs for 8 weeks." SARITA WHITAKER M.D. Apr 01, 2017 13:51
[2017-04-01] MEDS ORDERED: DOCU-216 PO (13:53)
[2017-04-01] MEDS ORDERED: HYDR-3498 PO (13:53)
[2017-04-01] MEDS ORDERED: BISA10SU75 PR (13:53)
[2017-04-01] MEDS ORDERED: NEOMYC/POLYMYX/BACIT 0.9 GM OINT ONE (18:40)
== END 2017-04-01 18:55 | disposition home or self-care (01) | DRG 407 ==
LOC: REC 05:21 → ICU 20:30 → MS1 03-31 02:39
PROVIDERS: ADMIT Transplant Surgery; ATTEND Transplant Surgery
PROC: 0FB20ZZ Excision of Left Lobe Liver, Open Approach (ICD-10-PCS; 2017-03-28)
PROC: 0FB10ZX Excision of Right Lobe Liver, Open Approach, Diagnostic (ICD-10-PCS; 2017-03-28)
PROC: 0WJG4ZZ Inspection of Peritoneal Cavity, Percutaneous Endoscopic Approach (ICD-10-PCS; 2017-03-28)
PROC: 0DNT0ZZ (ICD-10-PCS; 2017-03-28)
PROC: 0FB10ZZ Excision of Right Lobe Liver, Open Approach (ICD-10-PCS; principal; 2017-03-28 07:30)
DX: C78.7 Secondary malignant neoplasm of liver and intrahepatic bile duct (principal); I10 Essential (primary) hypertension; L30.9 Dermatitis, unspecified; K66.0 Peritoneal adhesions (postprocedural) (postinfection); Z80.0 Family history of malignant neoplasm of digestive organs; Z85.038 Personal history of other malignant neoplasm of large intestine
CPT/HCPCS: 36430; 80048; 80053; 80076; 81001; 82962; 83036; 83605; 83735; 83880; 84100; 85025; 85610; 85730; 86850; 86900; 86901; 86920; 87086; 88307; 88313; 88331; J1940; J0131; J1100; J1170; J1644; J1650; J1815; J1885; J2250; J2274; J2370; J2405; J2543; J2710; J2765; J2795; J3010; J3475; J3480; J7040; J7050; J7060; P9016; P9045

== ENCOUNTER 2017-04-12 15:26 | Outpatient (CLI) | payer OTHER ==
[~2017-04-12] VITALS: Ht 157.5 cm; Wt 73.2 kg
[~2017-04-12 15:26] MED LIST changes: +BISA10SU75 PR; +DOCU-216 PO; +HYDR-3498 PO; +LISI40TA9 PO
[2017-04-12 15:30] VITALS: BP 156/73; PULSE 90; RESP 18; Ht 157.5 cm; Wt 73.2 kg
--- NOTE | 2017-04-12 16:40 | PN ---
Date/Time of Note Date/Time of Note DATE: 04/12/17 TIME: 16:23 Assessment/Plan Assessment/Plan Assessment/Plan [facility] Progress Note Date of Service: 04/12/17 Today's Impression & Plan: Overall doing well post op without major issues. No major wound problems. No obvious signs of liver disfunction, abscess, or other major problems. Carefully discussed the pathology report with him (no family present) and reviewed the negative margin resection of segment 7 lesion and the focally positive margin resection of segment 4b lesion, both of which appear to be metastasis from his colon cancer. I estimated the risk of focal recurrence of tumor in segment 4b to be less than 2-3 percent given my observations in the OR (tumor did not seem to be invading into the portal triad below it at the point of focal positivity) , but may benefit from more local treatment to the liver such as SBRT. Answered all of patient's questions. Also discussed with Dr. Ramirez. With above assessment, I've recommended the following for today: 1. F/u with PCP 2. F/u with Dr. Ramirez 3. Multidisciplinary tumor board presentation 4. Consideration for radiation oncology evaluation for SBRT to bed of tumor resection site in segment 4b of liver 5. Surveillance liver MRI in 4-6 months Thank you again for your great care of this very pleasant patient and wonderful family. If there are any questions, please feel free to call me at [phone]. TOTAL VISIT TIME: 20 minutes of which more than half was spent in [id number] discussion with the patient, possibly including family, as well as coordination of care between multiple physicians and providers. Disclaimer: Inadvertent spelling or grammatical errors are likely due to EHR/ dictation software use and do not reflect on the overall quality of patient care. Updated Clinical Summary: A very pleasant 71-year-old gentleman with comorbidity of hypertension and previous cholecystectomy, status post laparoscopic hand-assisted sigmoid colectomy with primary anastomosis by Dr. Nestor Kasper at [facility] September 2015 for a stage III (PT3PN1) originally thought to be M0, 1 out of 14 lymph node positive with focally suspected lymphovascular invasion and no perineural invasion and 1 tumor deposit low grade (I to II) adenocarcinoma sized at 3 x 3 cm without any evidence of perforation and with negative margins. Patient then received modified FOLFOX 6 consisting of 5-FU, leucovorin and oxaliplatin for 12 cycles. He was noted to have increase in CEA from 3.5 to 11.7, 12/2016. Had CT done on 01/06/2017 showed at least 2 hypermetabolic hypoattenuating hepatic metastasis newly hypermetabolic from the prior PET CT measuring 1.9 cm with SUV of 6.7 and 1 cm lesion with SUV 4.3. The 1.9 cm mass measured 0.3 cm on the prior CT 12/19/2015 and the 1 cm mass was stable in size; however, again was thought to be newly hypermetabolic. There was also decreased metabolic uptake with previously seen mildly FDG avid periportal and left pelvic lymph nodes from prior which may be reactive inflammatory versus malignant process. There was increased ileocecal metabolic uptake and intraluminal narrowing similar to prior SUV maximum level of 5.4 previous CV maximum was 5.6 and this was thought to may be physiologic, but malignancy could not be entirely ruled out. Colonoscopy 03/10/17 with removal of 7 small polyps and no evidence of malignancy done at [facility] [place]. Patient underwent an otherwise uncomplicated laparoscopic, converted to open exploration of abdominal cavity with lysis of adhesions, partial hepatectomy in the form of central hepatectomy with removal of segment 4B, partial hepatectomy, removal of segment 6 and 7, core needle liver biopsy segment 5 (6 cores) with both frozen sections intraoperatively as well as for permanent sections at [facility] 03/28/17. Did very well without any evidence for major post-operative complication or wound problems. His drain was d/c'd 04/01/17. D/c home 04/01/17. COMORBIDITIES: 1. 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 2. BMI 29.9. 3. Hypertension. 4. Dermatitis. 5. History of acute cholecystitis, status post laparoscopic cholecystectomy 10/2012. 6. Mother with stomach cancer. 7. Colonoscopy 03/10/17 with removal of 7 small polyps and no evidence of malignancy done at [facility] [place]. 8. S/p laparoscopic, converted to open exploration of abdominal cavity with lysis of adhesions, partial hepatectomy in the form of central hepatectomy with removal of segment 4B, partial hepatectomy, removal of segment 6 and 7, core needle liver biopsy segment 5 (6 cores) with both frozen sections intraoperatively as well as for permanent sections at [facility] 03/28/17 Subjective: No major events or complaints; no abd pain and under control with medications; no n/v/d; no sob or cp; + flatus; + BM and normal; + activity Objective: Vitals: See below Exam: GENERAL: On exam, the patient was sitting in a chair and appeared to be comfortable and in no acute distress. ABDOMEN: Soft, nontender and nondistended. Incisions are clean, dry and intact without any evidence of erythema, edema, discharge, or hernia. Rian removed without any issues. There are no peritoneal signs or guarding. SKIN: Skin appears to be pink and feels warm to touch. NEUROLOGIC: Patient is awake, alert, and follows commands appropriately. Exam/Review of Systems Vital Signs Vitals Vital Signs Date Time Temp Pulse Resp B/P Pulse Ox O2 Delivery O2 Flow Rate FiO2 04/12/17 15:30 99.7 90 18 156/73 95 Room Air SARITA WHITAKER M.D. Apr 12, 2017 16:36
== END 2017-04-12 16:28 | disposition home or self-care (01) ==
LOC: HPC 15:26
PROVIDERS: ATTEND Transplant Surgery
DX: K76.9 Liver disease, unspecified (principal); I10 Essential (primary) hypertension; Z85.038 Personal history of other malignant neoplasm of large intestine; Z68.29 Body mass index [BMI] 29.0-29.9, adult; Z90.49 Acquired absence of other specified parts of digestive tract
CPT/HCPCS: G0463